=== PATIENT | female | born 1960 | race Two or more races ===

== ENCOUNTER 2022-01-18 18:39 | Inpatient (IN) ==
[2022-01-18 19:29] LABS: Basophils # (auto) 0.06 K/uL (0-0.2); Basophils % (auto) 0.4 %; Eosinophils # (auto) 0.18 K/uL (0-0.50); Eosinophils % (auto) 1.2 %; Hematocrit (blood only) 32.3 % (34.1-44.9); Hemoglobin 10.2 g/dl (12.0-16.0); Immature Granulocytes # (auto) 0.06 K/uL (0.00-0.02); Immature Granulocytes % (auto) 0.4 %; Lymphocytes # (auto) 2.24 K/uL (1.2-3.4); Lymphocytes % (auto) 14.4 %; Mean Corpuscular Hemoglobin 28.1 pg (25.0-34.0); Mean Corpuscular Hgb Conc 31.6 g/dL (32.0-36.0); Monocytes # (auto) 0.69 K/uL (0.24-0.82); Monocytes % (auto) 4.4 %; Neutrophils # (auto) 12.37 K/uL (1.4-6.5); Neutrophils % (auto) 79.2 %; Platelet Count 544 K/uL (130-400); RDW Coefficient of Variation 12.5 % (11.5-14.5); RDW Standard Deviation 40.7 fL (36.4-46.3); Red Blood Count 3.63 M/uL (3.93-5.22)
[2022-01-18 19:41] LABS: Partial Thromboplastin Ratio 0.9; Partial Thromboplastin Time 24.4 Seconds (21.0-31.0); Prothrombin Time 10.4 Seconds (9.0-12.0)
[2022-01-18 20:04] LABS: Albumin Globulin Ratio 1.4 (0.9-2); Albumin Level 4.5 gm/dl (3.4-5.0); BUN Creatinine Ratio 20.6 (10-20); Bilirubin,Total 0.2 mg/dl (0.2-1.0); Calcium 9.6 mg/dl (8.5-10.1); Creatinine Clr Calc Pharmacy 47.1 ml/min; Est GFR (African American) 53.6 ml/min; Est GFR (Non-African American) 46.3 ml/min; Globulin 3.2 gm/dl (2.5-4.0); Potassium 3.9 mmol/L (3.5-5.1); Total Protein 7.7 gm/dl (6.0-8.3)
[2022-01-18 20:51] LABS: Troponin I High Sensitivity 81.8 pg/ml (0-14)
[2022-01-18] MEDS ORDERED: ASPIRIN CHEW 324 MG PO STA (20:59)
--- NOTE | 2022-01-18 21:01 | Emergency Department Note ---
Impression & Plan Chest pain, Elevated troponin I level, NSTEMI (non-ST elevated myocardial infarction) ED Provider Note NAME: CEE GARIBAY AGE: 61 SEX: F : 1960 ARRIVES VIA: Walk-In INFORMANT: Patient, ED PROVIDER(S): Josef Jiménez DO CHIEF COMPLAINT: Chest pain HPI: The patient is a 61-year-old female who presented to the emergency dep artment directly from [facility]. The patient went to [facility] because she developed chest pain which was initially in her chest and then into her arm. She was very diaphoretic. The patient states that she does not have a cardiac history but took her 's nitroglycerin which relieved the pain. She was told that her EKG was abnormal at [facility] [employer] and was told to come to the emergency department for immediate evaluation of angina. The patient states she has no pain at this time. She denies having any lower extremity swelling. She denies having any nausea or abdominal pain. The patient denies having any cough. The patient denies having any cardiac work-up in the past. ROS: See above HPI for pertinent positives & negatives. A total of 10 systems reviewed and were otherwise negative. PAST MEDICAL HISTORY: See Below PAST SURGICAL HISTORY: See Below FAMILY HISTORY: See Below SOCIAL HISTORY: See Below HOME MEDICATIONS: See Below ALLERGIES: See Below VITALS: See Below PHYSICAL EXAMINATION: GENERAL: Patient is awake alert in no acute distress patient is resting comfortably and showing no signs of anxiety EYES: The conjunctivae are clear. The pupils are round and reactive. EARS, NOSE, MOUTH AND THROAT: The nose is without any evidence of any deformity. NECK: The neck is nontender and supple. RESPIRATORY: Normal respiratory effort is noted there is no evidence of wheezing rhonchi or rales CARDIOVASCULAR: Regular rate and rhythm noted there no murmurs rubs or gallops normal S1 normal S2. GASTROINTESTINAL: The abdomen is soft. Abdomen is nontender. MUSCULOSKELETAL/EXTREMITIES: There is no evidence of gross deformity full range of motion is noted in the hips and shoulders. SKIN: There is no obvious evidence of any rash. There are no petechiae, pallor or cyanosis noted. NEUROLOGIC: Patient is awake alert and oriented x3 MEDICAL DECISION MAKING: The patient is a 61-year-old female with multiple risk factors for coronary artery disease who presented to the emergency department for chest pain. The patient was initially seen at [facility] for chest [facility]. She was sent to the emergency department for further evaluation given her risk factors. I discussed the patient's laboratory and radiographic studies with her. She took her 's nitroglycerin with resolution of her symptoms and at this time has no pain. She was treated with aspirin in the emergency department. EKG shows no acute ischemic changes. Cardiac biomarker was elevated. For this reason I discussed her case with the on-call [facility] hospitalist. They have agreed to evaluate the patient in the emergency department for further management and disposition. The patient may require further treatment including blood thinners but at this time she has no pain so I will defer this decision to the admitting team. Triage Nursing notes reviewed. Prior medical records reviewed Vital Signs: reviewed and remarkable for no significant abnormalities Differential diagnosis: Cardiac ischemia, aortic dissection, pulmonary embolism, pneumothorax, pneumonia, pericarditis, myocarditis, esophageal rupture, GERD, cholecystitis, pancreatitis, musculoskeletal, as well as other pathologies. ER treatment provided: See below Diagnostics interpreted by me: ECG: EG was obtained in the emergency department. My interpretation is normal sinus rhythm at 75 bpm. There is no ectopy. There is no acute ST segment abnormalities noted. No previous tracing was available Cardiac Monitoring: An order was placed for continuous cardiac monitoring. The monitor shows a rate of 72 bpm with sinus rhythm. Laboratory studies: As stated above and show below. Imaging studies: See below Consultation(s): I discussed this case with Dr. Nails who [facility] Past Med/Surg History Medical History Diabetes Hypertension Neuropathy Sarcoidosis Sciatica Social History Smoking Status: Never smoker Hx Alcohol Use: No Hx Substance Use: No Preferred Language: Swedish [employer] Worker Required: No Beliefs That Will Affect Care: None Current Living Situation: Alone and Family Current Living Situation Comment: lives alone in [place]; visiting with sister for few months Other Information That Helps Us Care for You: No Feels Safe at Home: Yes Safety Concerns: Feels Safe At This Time Allergies Allergies Allergy/AdvReac Type Severity Reaction Status Date / Time unrecalled antibiotic (not Allergy Mild rash/fixed Uncoded 01/19/22 01:11 pcn, not cipro) drug eruption Home Meds Home Medications Medication Instructions Recorded Confirmed metformin 1,000 mg tablet 1,000 mg PO BID 01/18/22 01/18/22 Results & Data (ED) Vital Signs Vital Signs - 24 hr 01/18/22 18:47 01/18/22 21:17 01/18/22 23:06 Temperature 36.4 C L Temperature Source Temporal Artery Scan Pulse Rate 80 Pulse Rate [Finger] 87 81 Pulse Rhythm [Finger] Regular Pulse Strength [Finger] Normal Respiratory Rate 16 18 18 Respiratory Effort / Characteristics Non-Labored Non-Labored Respiratory Depth Normal Normal Respiratory Pattern Regular Regular Blood Pressure 149/76 H Blood Pressure [Right Arm] 174/96 H 136/69 Blood Pressure Mean 100 Blood Pressure Mean [Right Arm] 122 91 Blood Pressure Position Sitting Blood Pressure Position [Right Arm] Lying Pulse Oximetry 99 98 99 Oxygen Delivery Method Room Air Sepsis Recent Fever Within 48 Hours No Sepsis New/Unexplained Change in Mental Status N/A Sepsis Action Taken by Nursing No Action Required 01/18/22 23:37 Temperature Temperature Source Pulse Rate Pulse Rate [Finger] Pulse Rhythm [Finger] Pulse Strength [Finger] Respiratory Rate Respiratory Effort / Characteristics Respiratory Depth Respiratory Pattern Blood Pressure Blood Pressure [Right Arm] Blood Pressure Mean Blood Pressure Mean [Right Arm] Blood Pressure Position Blood Pressure Position [Right Arm] Pulse Oximetry Oxygen Delivery Method Room Air Sepsis Recent Fever Within 48 Hours Sepsis New/Unexplained Change in Mental Status Sepsis Action Taken by Care Home Medications Current Medication List: was personally reviewed by me Laboratory Data Attestation: I reviewed the patient's lab results. Result diagrams: 01/19/22 08:38 01/19/22 08:38 Lab Results 01/18/22 01/18/22 01/18/22 Range/Units 19:07 19:07 19:07 WBC 15.60 H (4.8-10.8) K/ul RBC 3.63 L (3.93-5.22) M/uL Hgb 10.2 L (12.0-16.0) g/dl Hct 32.3 L (34.1-44.9) % MCV 89.0 (80.0-100.0) fL MCH 28.1 (25.0-34.0) pg MCHC 31.6 L (32.0-36.0) g/dL RDW Std Deviation 40.7 (36.4-46.3) fL RDW Coeff of Hum[place] 12.5 (11.5-14.5) % Plt Count 544 H (130-400) K/uL MPV 9.0 L (9.4-12.3) fL Immature Gran % (Auto) 0.4 % Neut % (Auto) 79.2 % Lymph % (Auto) 14.4 % [place] % (Auto) 4.4 % Eos % (Auto) 1.2 % Baso % (Auto) 0.4 % Reticulocyte % (Auto) (0.5-2.0) % Neut # (Auto) 12.37 H (1.4-6.5) K/uL Lymph # (Auto) 2.24 (1.2-3.4) K/uL [place] # (Auto) 0.69 (0.24-0.82) K/uL Eos # (Auto) 0.18 (0-0.50) K/uL Baso # (Auto) 0.06 (0-0.2) K/uL Reticulocyte # (0.02-0.10) 10^6/uL Immature Gran # (Auto) 0.06 H (0.00-0.02) K/uL PT 10.4 (9.0-12.0) Seconds INR 1.0 (0.9-1.1) APTT 24.4 (21.0-31.0) Seconds PTT Ratio 0.9 Sodium 135 L (136-145) mmol/L Potassium 3.9 (3.5-5.1) mmol/L Chloride 100 (98-107) mmol/L Carbon Dioxide 25 (21-32) mmol/L Anion Gap 10 (3-11) BUN 26 H (6-23) mg/dl Creatinine 1.26 H (0.6-1.2) mg/dl Est Cr Clr Drug Dosing 47.1 ml/min Est GFR ( Amer) 53.6 ml/min Est GFR (Non-Af Amer) 46.3 ml/min BUN/Creatinine Ratio 20.6 H (10-20) Glucose 162 H (70-99(Fasting)) mg/dl Estimat Average Glucose mg/dl Hemoglobin A1c (4.5-5.6) % Calcium 9.6 (8.5-10.1) mg/dl Magnesium (1.7-2.4) mg/dl Iron (35-150) mcg/dl Transferrin (200-360) mg/dl Ferritin (8-388) ng/ml Total Bilirubin 0.2 (0.2-1.0) mg/dl AST 14 (13-39) U/L ALT 14 (7-52) U/L Alkaline Phosphatase 57 (34-104) U/L Troponin I High Sens 81.8 H* (0-14) pg/ml Total Protein 7.7 (6.0-8.3) gm/dl Albumin 4.5 (3.4-5.0) gm/dl Globulin 3.2 (2.5-4.0) gm/dl Albumin/Globulin Ratio 1.4 (0.9-2) Vitamin B12 (180-914) pg/ml Folate (>5.38) ng/ml TSH (0.300-4.500) uIu/ml Free T4 (0.61-1.60) ng/dl Urine Color Urine Appearance (Clear) Urine pH (4.5-7.5) Ur Specific [place] (1.000-1.030) Urine Protein (Negative) Urine Glucose (UA) (Negative) Urine Ketones (Negative) Urine Blood (Negative) Urine Nitrite (Negative) Urine Bilirubin (Negative) Urine Urobilinogen (Negative) Ur Leukocyte Esterase (Negative) SARS-CoV-2, RNA, NAAT (NEGATIVE) Blood Type Antibody Screen 01/18/22 01/18/22 01/18/22 Range/Units 19:07 19:07 19:07 WBC (4.8-10.8) K/ul RBC (3.93-5.22) M/uL Hgb (12.0-16.0) g/dl Hct (34.1-44.9) % MCV (80.0-100.0) fL MCH (25.0-34.0) pg MCHC (32.0-36.0) g/dL RDW Std Deviation (36.4-46.3) fL RDW Coeff of Humble (11.5-14.5) % Plt Count (130-400) K/uL MPV (9.4-12.3) fL Immature Gran % (Auto) % Neut % (Auto) % Lymph % (Auto) % [place] % (Auto) % Eos % (Auto) % Baso % (Auto) % Reticulocyte % (Auto) 1.4 (0.5-2.0) % Neut # (Auto) (1.4-6.5) K/uL Lymph # (Auto) (1.2-3.4) K/uL [place] # (Auto) (0.24-0.82) K/uL Eos # (Auto) (0-0.50) K/uL Baso # (Auto) (0-0.2) K/uL Reticulocyte # 0.05 (0.02-0.10) 10^6/uL Immature Gran # (Auto) (0.00-0.02) K/uL PT (9.0-12.0) Seconds INR (0.9-1.1) APTT (21.0-31.0) Seconds PTT Ratio Sodium (136-145) mmol/L Potassium (3.5-5.1) mmol/L Chloride (98-107) mmol/L Carbon Dioxide (21-32) mmol/L Anion Gap (3-11) BUN (6-23) mg/dl Creatinine (0.6-1.2) mg/dl Est Cr Clr Drug Dosing ml/min Est GFR ( Amer) ml/min Est GFR (Non-Af Amer) ml/min BUN/Creatinine Ratio (10-20) Glucose (70-99(Fasting)) mg/dl Estimat Average Glucose 157 mg/dl Hemoglobin A1c 7.1 H (4.5-5.6) % Calcium (8.5-10.1) mg/dl Magnesium (1.7-2.4) mg/dl Iron (35-150) mcg/dl Transferrin (200-360) mg/dl Ferritin (8-388) ng/ml Total Bilirubin (0.2-1.0) mg/dl AST (13-39) U/L ALT (7-52) U/L Alkaline Phosphatase (34-104) U/L Troponin I High Sens (0-14) pg/ml Total Protein (6.0-8.3) gm/dl Albumin (3.4-5.0) gm/dl Globulin (2.5-4.0) gm/dl Albumin/Globulin Ratio (0.9-2) Vitamin B12 (180-914) pg/ml Folate (>5.38) ng/ml TSH 4.701 H (0.300-4.500) uIu/ml Free T4 0.92 (0.61-1.60) ng/dl Urine Color Urine Appearance (Clear) Urine pH (4.5-7.5) Ur Specific [place] (1.000-1.030) Urine Protein (Negative) Urine Glucose (UA) (Negative) Urine Ketones (Negative) Urine Blood (Negative) Urine Nitrite (Negative) Urine Bilirubin (Negative) Urine Urobilinogen (Negative) Ur Leukocyte Esterase (Negative) SARS-CoV-2, RNA, NAAT (NEGATIVE) Blood Type Antibody Screen 01/18/22 01/18/22 01/18/22 Range/Units 19:07 21:14 22:07 WBC (4.8-10.8) K/ul RBC (3.93-5.22) M/uL Hgb (12.0-16.0) g/dl Hct (34.1-44.9) % MCV (80.0-100.0) fL MCH (25.0-34.0) pg MCHC (32.0-36.0) g/dL RDW Std Deviation (36.4-46.3) fL RDW Coeff of Humble (11.5-14.5) % Plt Count (130-400) K/uL MPV (9.4-12.3) fL Immature Gran % (Auto) % Neut % (Auto) % Lymph % (Auto) % [place] % (Auto) % Eos % (Auto) % Baso % (Auto) % Reticulocyte % (Auto) (0.5-2.0) % Neut # (Auto) (1.4-6.5) K/uL Lymph # (Auto) (1.2-3.4) K/uL [place] # (Auto) (0.24-0.82) K/uL Eos # (Auto) (0-0.50) K/uL Baso # (Auto) (0-0.2) K/uL Reticulocyte # (0.02-0.10) 10^6/uL Immature Gran # (Auto) (0.00-0.02) K/uL PT (9.0-12.0) Seconds INR (0.9-1.1) APTT (21.0-31.0) Seconds PTT Ratio Sodium (136-145) mmol/L Potassium (3.5-5.1) mmol/L Chloride (98-107) mmol/L Carbon Dioxide (21-32) mmol/L Anion Gap (3-11) BUN (6-23) mg/dl Creatinine (0.6-1.2) mg/dl Est Cr Clr Drug Dosing ml/min Est GFR ( Amer) ml/min Est GFR (Non-Af Amer) ml/min BUN/Creatinine Ratio (10-20) Glucose (70-99(Fasting)) mg/dl Estimat Average Glucose mg/dl Hemoglobin A1c (4.5-5.6) % Calcium (8.5-10.1) mg/dl Magnesium (1.7-2.4) mg/dl Iron (35-150) mcg/dl Transferrin (200-360) mg/dl Ferritin (8-388) ng/ml Total Bilirubin (0.2-1.0) mg/dl AST (13-39) U/L ALT (7-52) U/L Alkaline Phosphatase (34-104) U/L Troponin I High Sens (0-14) pg/ml Total Protein (6.0-8.3) gm/dl Albumin (3.4-5.0) gm/dl Globulin (2.5-4.0) gm/dl Albumin/Globulin Ratio (0.9-2) Vitamin B12 52 L (180-914) pg/ml Folate > 22.30 (>5.38) ng/ml TSH (0.300-4.500) uIu/ml Free T4 (0.61-1.60) ng/dl Urine Color Urine Appearance (Clear) Urine pH (4.5-7.5) Ur Specific [place] (1.000-1.030) Urine Protein (Negative) Urine Glucose (UA) (Negative) Urine Ketones (Negative) Urine Blood (Negative) Urine Nitrite (Negative) Urine Bilirubin (Negative) Urine Urobilinogen (Negative) Ur Leukocyte Esterase (Negative) SARS-CoV-2, RNA, NAAT NEGATIVE (NEGATIVE) Blood Type AB Positive Antibody Screen NEGATIVE 01/18/22 01/18/22 Range/Units 22:07 22:56 WBC (4.8-10.8) K/ul RBC (3.93-5.22) M/uL Hgb (12.0-16.0) g/dl Hct (34.1-44.9) % MCV (80.0-100.0) fL MCH (25.0-34.0) pg MCHC (32.0-36.0) g/dL RDW Std Deviation (36.4-46.3) fL RDW Coeff of Hum[place] (11.5-14.5) % Plt Count (130-400) K/uL MPV (9.4-12.3) fL Immature Gran % (Auto) % Neut % (Auto) % Lymph % (Auto) % [place] % (Auto) % Eos % (Auto) % Baso % (Auto) % Reticulocyte % (Auto) (0.5-2.0) % Neut # (Auto) (1.4-6.5) K/uL Lymph # (Auto) (1.2-3.4) K/uL [place] # (Auto) (0.24-0.82) K/uL Eos # (Auto) (0-0.50) K/uL Baso # (Auto) (0-0.2) K/uL Reticulocyte # (0.02-0.10) 10^6/uL Immature Gran # (Auto) (0.00-0.02) K/uL PT (9.0-12.0) Seconds INR (0.9-1.1) APTT (21.0-31.0) Seconds PTT Ratio Sodium (136-145) mmol/L Potassium (3.5-5.1) mmol/L Chloride (98-107) mmol/L Carbon Dioxide (21-32) mmol/L Anion Gap (3-11) BUN (6-23) mg/dl Creatinine (0.6-1.2) mg/dl Est Cr Clr Drug Dosing ml/min Est GFR ( Amer) ml/min Est GFR (Non-Af Amer) ml/min BUN/Creatinine Ratio (10-20) Glucose (70-99(Fasting)) mg/dl Estimat Average Glucose mg/dl Hemoglobin A1c (4.5-5.6) % Calcium (8.5-10.1) mg/dl Magnesium 1.8 (1.7-2.4) mg/dl Iron 25 L (35-150) mcg/dl Transferrin 399 H (200-360) mg/dl Ferritin 19.9 (8-388) ng/ml Total Bilirubin (0.2-1.0) mg/dl AST (13-39) U/L ALT (7-52) U/L Alkaline Phosphatase (34-104) U/L Troponin I High Sens 406.6 H* D (0-14) pg/ml Total Protein (6.0-8.3) gm/dl Albumin (3.4-5.0) gm/dl Globulin (2.5-4.0) gm/dl Albumin/Globulin Ratio (0.9-2) Vitamin B12 (180-914) pg/ml Folate (>5.38) ng/ml TSH (0.300-4.500) uIu/ml Free T4 (0.61-1.60) ng/dl Urine Color Yellow Urine Appearance Clear (Clear) Urine pH 5.5 (4.5-7.5) Ur Specific [place] 1.005 (1.000-1.030) Urine Protein Negative (Negative) Urine Glucose (UA) Negative (Negative) Urine Ketones Negative (Negative) Urine Blood Negative (Negative) Urine Nitrite Negative (Negative) Urine Bilirubin Negative (Negative) Urine Urobilinogen Negative (Negative) Ur Leukocyte Esterase Negative (Negative) SARS-CoV-2, RNA, NAAT (NEGATIVE) Blood Type Antibody Screen Administered Medications Aspirin (Aspirin 81 Mg Ectab) 81 mg PO QAM [facility] Stop: 02/18/22 08:59 Last Admin: 01/19/22 08:29 Dose: 81 mg Documented By: SAM Lactated Ringer's (Lr) 1,000 mls @ 50 mls/hr IV .Q20H ONE Stop: 01/19/22 17:37 Last Admin: 01/18/22 22:02 Dose: 50 mls/hr Documented By: NEAL Heparin Sodium/Dextrose (Heparin Sodium/Dextrose) 25,000 units in 500 mls @ 24 mls/hr IV .[id number] [facility]; Protocol Stop: 02/18/22 00:29 Last Titration: 01/19/22 09:16 Dose: 1,200 units/hr, 24 mls/hr Documented By: SAM Co-signed By: CARMEN Admin: 01/19/22 02:53 Dose: 1,150 units/hr, 23 mls/hr Documented By: ALFIE Co-signed By: CHARLES Insulin Aspart (Insulin Aspart Per Unit) 0 units SC Q6 [facility] Stop: 02/18/22 05:59 Last Admin: 01/19/22 06:35 Dose: Not Given Documented By: ALFIE Metoprolol Tartrate (Metoprolol Tartrate 25 Mg Tab) 25 mg PO BID [facility] Stop: 02/18/22 08:59 Last Admin: 01/19/22 08:29 Dose: 25 mg Documented By: SAM Discontinued Medications Aspirin (Aspirin Chew 324 Mg) 324 mg PO NOW STA Stop: 01/18/22 21:00 Last Admin: 01/18/22 21:17 Dose: 324 mg Documented By: NEAL Heparin Sodium/Dextrose (Heparin Iv Adult Wt-Based Standard *No* Bolus Protocol) 1 each IV Q15M [facility]; Protocol Stop: 01/19/22 04:00 Last Admin: 01/19/22 03:12 Dose: Not Given Documented By: ALFIE Metoprolol Tartrate (Metoprolol Tartrate 25 Mg Tab) 25 mg PO NOW STA Stop: 01/18/22 21:38 Last Admin: 01/18/22 22:02 Dose: 25 mg Documented By: NEAL Miscellaneous Information (Patient's Allergy Info Needs Entered) 1 each N/A Q30M [facility] Stop: 01/19/22 02:00 Last Admin: 01/18/22 21:57 Dose: 1 each Documented By: NEAL Imaging Data Attestation: I personally reviewed and interpreted this imaging study as follows: My Impression: 1 view chest x-ray was obtained in the emergency department. My interpretation is no definite infiltrate, no free air, no acute disease. Radiologist's Impression: Chest X-Ray 01/18/22 20:59 XR chest 1V portable CLINICAL HISTORY: CP TECHNIQUE: Single frontal radiograph of the chest was obtained. Comparison: None available at the time of this dictation. FINDINGS: No lines and tubes are seen. The cardiomediastinal silhouette is normal. The lungs are clear. No evidence of pleural effusion or pneumothorax. IMPRESSION: No acute chest disease. ACT 112: Negative or not required by law. Electronically signed by: Sanchez Francisco M.D. 01/19/2022 9:04 AM Discharge Plan Visit Data Chief Complaint: Cardiac Assessment Stated Complaint: CHEST PAIN, BACK/ARM PAIN, SL NITRO HELPED SOME ED Provider: Josef Jiménez Discharge Problem: Chest pain, Elevated troponin I level, NSTEMI (non-ST elevated myocardial infarction) Patient Disposition: Admitted As Inpatient Discharge Instructions Interventions: ED Discharge Assessment Last Done: 01/19/22 02:27
[2022-01-18] MEDS ORDERED: METOPROLOL TARTRATE 25 MG TAB PO STA ×2 (21:33→21:37)
[2022-01-18] MEDS ORDERED: LACTATED RINGER'S 1,000 ML IV ONE (21:38)
[2022-01-18] MEDS ORDERED: Patient's ALLERGY Info needs ENTERED SCH (21:45)
[2022-01-18 22:16] LABS: Reticulocyte % 1.4 % (0.5-2.0); Reticulocytes # 0.05 10^6/uL (0.02-0.10)
[2022-01-18 22:21] LABS: Thyroid Stimulating Hormone 4.701 uIu/ml (0.300-4.500)
[2022-01-18 22:48] LABS: Magnesium 1.8 mg/dl (1.7-2.4)
[2022-01-18 22:50] LABS: Folate (Folic Acid) > 22.30 ng/ml (>5.38)
[2022-01-18 22:51] LABS: Vitamin B12 52 pg/ml (180-914)
[2022-01-18 22:53] LABS: Troponin I High Sensitivity 406.6 pg/ml (0-14)
[2022-01-18 23:03] LABS: T4 Free Thyroxine 0.92 ng/dl (0.61-1.60)
[2022-01-18 23:07] LABS: Appearance Urine Clear (Clear); Bilirubin Urine Negative (Negative); Blood Urine Negative (Negative); Color Urine Yellow; Glucose Urine UA Negative (Negative); Ketones Urine Negative (Negative); Leukocyte Esterase Urine Negative (Negative); Nitrite Urine Negative (Negative); Protein Urine Negative (Negative); Specific Gravity Urine 1.005 (1.000-1.030); Urobilinogen Urine Negative (Negative); pH Urine 5.5 (4.5-7.5)
[2022-01-18 23:30] LABS: Ferritin 19.9 ng/ml (8-388)
[2022-01-19] MEDS ORDERED: Heparin IV Adult Wt-Based Standard *NO* Bolus Protocol IV SCH
--- NOTE | 2022-01-19 00:01 | History & Physical Report ---
Date of Service January 19, 2022 Assessment & Plan (1) NSTEMI (non-ST elevated myocardial infarction): Plan: HTN, elevated hx "tachycardia" on beta-vasiliy Rx hyperlipidemia on fibrate Rx DM2 on oral medications, unknown baseline control hx sarcoidosis/seronegative rheumatoid arthritis on chronic steroid/allopurinol Rx as per patient ARF, unknown duration (patient unaware of prior lab abnormalities) Anemia, unknown duration (history of anemia secondary to menorrhagia during her younger years requiring Venofer Rx as per patient) PCU Aspirin, beta-vasiliy, nitro as needed Initiate IV heparin Trend troponin TTE, Cardiology consult Re: NSTEMI N.p.o. until patient seen by cardiology in anticipation of ischemic work-up Monitor creatinine response to IVF Check lipid profile, hemoglobin A1c Anemia work-up (Patient refusing transfusion as needed for now in the event of progression of anemia/blood loss.) Basal bolus insulin adjusted for n.p.o. status, ISS BG goal 1 10-1 40 Request morning provider to reconcile patient's home medications when patient sister brings them to hospital tomorrow. (Important to continue current daily home steroid Rx preparation in particular.) DVT prophylaxis with IV heparin Full code Patient sister requesting updates from providers. Indigo Varela, contact #[phone]. Text document was generated using [employer] voice recognition software. It may contain grammatical or spelling errors. Kindly contact undersigned for clarification of any documentation item in question. History of Present Illness Chief Complaint: Chest pain Primary Care Provider: NO PCP History obtained from patient, family, and records. Medical history significant for HTN, "tachycardia" on beta-vasiliy Rx, hyperlipidemia, DM2 on oral medications, sarcoidosis/seronegative rheumatoid arthritis on chronic steroid/allopurinol Rx as per patient, mood disorder. Patient is a resident of [place] who has been vacationing last couple months in [place] at her sister's home. Patient experience achy left-sided chest pain going to her arm with shortness of breath and diaphoresis today after shopping at a local [employer]. No cough, no fever, no chills. Usual personal stressors. Chest pain relieved by nitroglycerin patient had in her purse. 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 Patient denies abdominal pain, black, bloody stools. One-time episode of gross hematuria a few months ago. Patient went to nearby urgent care center but was directed to the ER for evaluation. Aspirin administered upon arrival at the ER. Medical History as above Surgical History : Left knee surgery Home Medications (patient uncertain about doses) : Indapamide, Folic acid, Sertraline, Fenofibrate, Prednisolone, Nebivolol, Allopurinol Family History : Heart disease Personal/Social history : Non-smoker, no EtOH intake, prior work as a schoolteacher, born in [facility] but currently residing in [place] Allergies Allergy/AdvReac Type Severity Reaction Status Date / Time unrecalled antibiotic (not Allergy Mild rash/fixed Uncoded 01/19/22 01:11 pcn, not cipro) drug eruption Home Medications Medication Instructions Recorded Confirmed Type metformin 1,000 mg tablet 1,000 mg PO BID 01/18/22 01/18/22 History Past Med/Surg History Medical History Diabetes Hypertension Neuropathy Sarcoidosis Sciatica Social History Smoking Status: Never smoker Hx Alcohol Use: No Hx Substance Use: No Preferred Language: Latvian [employer]imator [employer]ing Required: No Beliefs That Will Affect Care: None Current Living Situation: Alone and Family Current Living Situation Comment: lives alone in [place]; visiting with sister for few months Other Information That Helps Us Care for You: No Feels Safe at Home: Yes Safety Concerns: Feels Safe At This Time Review of Systems Review of Systems: As per HPI, all other systems reviewed and negative Physical Exam Physical Exam: GENERAL: Comfortable, pleasant, slightly anxious, no respiratory distress SKIN: Pallor,, warm HEENT: Pale palpebral conjunctivae, no ptosis, dry buccal mucosa NECK : Supple, no tenderness CHEST : CTA, no tenderness HEART : RRR, no obvious murmurs ABDOMEN: Some distention, nontender EXTREMITIES : No LE swelling/tenderness, no other conspicuous deformities noted NEUROLOGIC : Coherent, no facial asymmetry, no other gross focality Results & Data Results & Data ([facility]) Vital Signs (Past 12 Hours) Vital Signs Temp Pulse Pulse Resp BP BP Pulse Ox 01/18/22 23:37 01/18/22 23:06 81 18 136/69 99 01/18/22 21:17 87 18 174/96 H 98 01/18/22 18:47 36.4 C L 80 16 149/76 H 99 O2 Del Method 01/18/22 23:37 Room Air 01/18/22 23:06 01/18/22 21:17 01/18/22 18:47 Room Air Laboratory Results Laboratory Results WBC 15.60 K/ul (4.8-10.8) H 01/18/22 19:07 RBC 3.63 M/uL (3.93-5.22) L 01/18/22 19:07 Hgb 10.2 g/dl (12.0-16.0) L 01/18/22 19:07 Hct 32.3 % (34.1-44.9) L 01/18/22 19:07 MCV 89.0 fL (80.0-100.0) 01/18/22 19:07 MCH 28.1 pg (25.0-34.0) 01/18/22 19:07 MCHC 31.6 g/dL (32.0-36.0) L 01/18/22 19:07 RDW Std Deviation 40.7 fL (36.4-46.3) 01/18/22 19:07 RDW Coeff of [place] 12.5 % (11.5-14.5) 01/18/22 19:07 Plt Count 544 K/uL (130-400) H 01/18/22 19:07 MPV 9.0 fL (9.4-12.3) L 01/18/22 19:07 Immature Gran % (Auto) 0.4 % 01/18/22 19:07 Neut % (Auto) 79.2 % 01/18/22 19:07 Lymph % (Auto) 14.4 % 01/18/22 19:07 [place] % (Auto) 4.4 % 01/18/22 19:07 Eos % (Auto) 1.2 % 01/18/22 19:07 Baso % (Auto) 0.4 % 01/18/22 19:07 Reticulocyte % (Auto) 1.4 % (0.5-2.0) 01/18/22 19:07 Neut # (Auto) 12.37 K/uL (1.4-6.5) H 01/18/22 19:07 Lymph # (Auto) 2.24 K/uL (1.2-3.4) 01/18/22 19:07 [place] # (Auto) 0.69 K/uL (0.24-0.82) 01/18/22 19:07 Eos # (Auto) 0.18 K/uL (0-0.50) 01/18/22 19:07 Baso # (Auto) 0.06 K/uL (0-0.2) 01/18/22 19:07 Reticulocyte # 0.05 10^6/uL (0.02-0.10) 01/18/22 19:07 Immature Gran # (Auto) 0.06 K/uL (0.00-0.02) H 01/18/22 19:07 PT 10.4 Seconds (9.0-12.0) 01/18/22 19:07 INR 1.0 (0.9-1.1) 01/18/22 19:07 APTT 24.4 Seconds (21.0-31.0) 01/18/22 19:07 PTT Ratio 0.9 01/18/22 19:07 Sodium 135 mmol/L (136-145) L 01/18/22 19:07 Potassium 3.9 mmol/L (3.5-5.1) 01/18/22 19:07 Chloride 100 mmol/L (98-107) 01/18/22 19:07 Carbon Dioxide 25 mmol/L (21-32) 01/18/22 19:07 Anion Gap 10 (3-11) 01/18/22 19:07 BUN 26 mg/dl (6-23) H 01/18/22 19:07 Creatinine 1.26 mg/dl (0.6-1.2) H 01/18/22 19:07 Est Cr Clr Drug Dosing 47.1 ml/min 01/18/22 19:07 Est GFR ( Amer) 53.6 ml/min 01/18/22 19:07 Est GFR (Non-Af Amer) 46.3 ml/min 01/18/22 19:07 BUN/Creatinine Ratio 20.6 (10-20) H 01/18/22 19:07 Glucose 162 mg/dl (70-99(Fasting)) H 01/18/22 19:07 Calcium 9.6 mg/dl (8.5-10.1) 01/18/22 19:07 Magnesium 1.8 mg/dl (1.7-2.4) 01/18/22 22:07 Iron 25 mcg/dl (35-150) L 01/18/22 22:07 Transferrin 399 mg/dl (200-360) H 01/18/22 22:07 Ferritin 19.9 ng/ml (8-388) 01/18/22 22:07 Total Bilirubin 0.2 mg/dl (0.2-1.0) 01/18/22 19:07 AST 14 U/L (13-39) 01/18/22 19:07 ALT 14 U/L (7-52) 01/18/22 19:07 Alkaline Phosphatase 57 U/L (34-104) 01/18/22 19:07 Troponin I High Sens 406.6 pg/ml (0-14) H* D 01/18/22 22:07 Total Protein 7.7 gm/dl (6.0-8.3) 01/18/22 19:07 Albumin 4.5 gm/dl (3.4-5.0) 01/18/22 19:07 Globulin 3.2 gm/dl (2.5-4.0) 01/18/22 19:07 Albumin/Globulin Ratio 1.4 (0.9-2) 01/18/22 19:07 Vitamin B12 52 pg/ml (180-914) L 01/18/22 19:07 Folate > 22.30 ng/ml (>5.38) 01/18/22 19:07 TSH 4.701 uIu/ml (0.300-4.500) H 01/18/22 19:07 Free T4 0.92 ng/dl (0.61-1.60) 01/18/22 19:07 Urine Color Yellow 01/18/22 22:56 Urine Appearance Clear (Clear) 01/18/22 22:56 Urine pH 5.5 (4.5-7.5) 01/18/22 22:56 Ur Specific [place] 1.005 (1.000-1.030) 01/18/22 22:56 Urine Protein Negative (Negative) 01/18/22 22:56 Urine Glucose (UA) Negative (Negative) 01/18/22 22:56 Urine Ketones Negative (Negative) 08/31/22 22:56 Urine Blood Negative (Negative) 01/18/22 22:56 Urine Nitrite Negative (Negative) 01/18/22 22:56 Urine Bilirubin Negative (Negative) 01/18/22 22:56 Urine Urobilinogen Negative (Negative) 01/18/22 22:56 Ur Leukocyte Esterase Negative (Negative) 01/18/22 22:56 SARS-CoV-2, RNA, NAAT NEGATIVE (NEGATIVE) 01/18/22 21:14 Blood Type AB Positive 01/18/22 22:07 Antibody Screen NEGATIVE 01/18/22 22:07 Diagnostic Findings Chest x-ray as per my interpretation atelectasis EKG as per my interpretation : rate 75, NSR, normal axis, T wave inversion septal leads,
[2022-01-19] MEDS ORDERED: CARBOHYDRATES FOR HYPOGLYCEMIA PO PRN (02:46)
[2022-01-19] MEDS ORDERED: DEXTROSE 50% 50 ML SYRINGE IV PRN (02:46)
[2022-01-19] MEDS ORDERED: ACETAMINOPHEN 325 MG TAB PO PRN (02:46)
[2022-01-19] MEDS ORDERED: GLUCOSE 40% GEL 15 GM TUBE PO PRN (02:46)
[2022-01-19] MEDS ORDERED: HYDROmorphone INJ 0.5 MG/0.5 ML SYR IV PRN (02:46)
[2022-01-19] MEDS ORDERED: GLUCOSE 10 TAB/TUBE PO PRN (02:46)
[2022-01-19] MEDS ORDERED: PROMETHAZINE HCL 12.5 MG in SODIUM CHLORIDE 0.9% 50 ML IV PRN (02:46)
[2022-01-19] MEDS ORDERED: GLUCAGON FOR INJ 1 MG VIAL SQ PRN (02:46)
[2022-01-19] MEDS ORDERED: NITROGLYCERIN SL 0.4 MG/TAB TAB SL PRN (02:46)
[2022-01-19] MEDS ORDERED: LORazepam 0.5 MG TAB PO PRN (02:46)
[2022-01-19] MEDS ORDERED: traMADol HCL 50 MG TABLET PO PRN (02:46)
[2022-01-19] MEDS: HEPARIN SODIUM/DEXTROSE 25,000 UNITS/500 ML BAG IV SCH ×2 (02:53→22:39)
[2022-01-19] MEDS: INSULIN ASPART PER UNIT SC SCH ×4 (06:35→20:02)
[2022-01-19 07:19] LABS: Estimated Average Glucose 157 mg/dl; Hemoglobin A1C 7.1 % (4.5-5.6)
[2022-01-19] MEDS: METOPROLOL TARTRATE 25 MG TAB PO SCH ×2 (08:29→19:55)
[2022-01-19] MEDS: ASPIRIN 81 MG ECTAB PO SCH (08:29)
[2022-01-19 08:52] LABS: Basophils # (auto) 0.06 K/uL (0-0.2); Basophils % (auto) 0.6 %; Eosinophils # (auto) 0.21 K/uL (0-0.50); Hematocrit (blood only) 31.9 % (34.1-44.9); Hemoglobin 10.2 g/dl (12.0-16.0); Immature Granulocytes # (auto) 0.03 K/uL (0.00-0.02); Immature Granulocytes % (auto) 0.3 %; Mean Corpuscular Hemoglobin 27.8 pg (25.0-34.0); Mean Corpuscular Volume 86.9 fL (80.0-100.0); Mean Platelet Volume 8.8 fL (9.4-12.3); Monocytes # (auto) 0.49 K/uL (0.24-0.82); Monocytes % (auto) 4.6 %; Neutrophils # (auto) 6.81 K/uL (1.4-6.5); Neutrophils % (auto) 63.5 %; Platelet Count 505 K/uL (130-400); RDW Coefficient of Variation 12.7 % (11.5-14.5); RDW Standard Deviation 40.2 fL (36.4-46.3); Red Blood Count 3.67 M/uL (3.93-5.22)
[2022-01-19 09:03] LABS: Partial Thromboplastin Ratio 1.6; Partial Thromboplastin Time 43.5 Seconds (21.0-31.0)
--- NOTE | 2022-01-19 09:05 | XRay Report ---
XR chest 1V portable CLINICAL HISTORY: CP TECHNIQUE: Single frontal radiograph of the chest was obtained. Comparison: None available at the time of this dictation. FINDINGS: No lines and tubes are seen. The cardiomediastinal silhouette is normal. The lungs are clear. No evid ence of pleural effusion or pneumothorax. IMPRESSION: No acute chest disease. ACT 112: Negative or not required by law. Electronically signed by: Sanchez Francisco M.D. 01/19/2022 9:04 AM
[2022-01-19 09:16] LABS: BUN Creatinine Ratio 18.5 (10-20); Calcium 9.9 mg/dl (8.5-10.1); Chol HDL Ratio 5.6 (0-5); Creatinine Clr Calc Pharmacy 54.5 ml/min; Est GFR (African American) 64.6 ml/min; Est GFR (Non-African American) 55.8 ml/min; Potassium 4.3 mmol/L (3.5-5.1)
[2022-01-19 09:21] LABS: Troponin I High Sensitivity 780.5 pg/ml (0-14)
--- NOTE | 2022-01-19 09:23 | Cardiology Consultation ---
Date of Consultation January 19, 2022 Assessment & Plan (1) Unstable angina: (2) Chest pain: (3) Elevated troponin I level: (4) NSTEMI (non-ST elevated myocardial infarction): Plan 61-year-old female with multiple cardiac risk factors admitted with resting chest pain, unstable angina presentation, NSTEMI. Agree with IV heparin, ASA, beta-vasiliy, sublingual nitroglycerin as needed. Add high intensity statin therapy. Recommend diagnostic cardiac catheterization with risks and benefits explained; patient wishing to discuss further with her [id number] who is a neurosurgeon after initially requesting consideration for delaying the procedure until she returns home ([facility]) in approximately one month. Sister updated upon presentation. Supervising Physician Co-Signing Physician Notes Patient seen and examined with Massimo Allen PA-C. Agree with findings and assessment as above. Patient is agreeable for cardiac catheterization in the a.m. N.p.o. after midnight. History of Present Illness Reason for Consultation: NSTEMI Requesting Physician: Eduin Attending Physician: Wilfrid History of Present Illness Ms. Prudencio Varela is a 61 year old female patient from [facility] who has been visiting her sister from [facility] and since October. Yesterday they ate lunch outside (fish, avocado, salsa, rice) then went to [facility] [place]. After shopping at [facility] [place], while sitting in the car, she began to feel an uneasiness feeling in the chest, left sided sharp chest pain that traveled to the left side of her back and down her left arm. She notes feeling drained and diaphoretic. She felt like she was going to pass out. No shortness of breath. She notes that her late was a physician and had her carry Angised if needed. She notes taking one Angised with improvement in about 2-3 minutes. Patient then presented to [email or web address] where an ECG was obtained and the patient was referred to the ER. In the Triage area the patient had what she describes as a brief moment of chest p ain that resolved spontaneously. She has been chest pain free since initial presentation. EKG on presentation to the [facility] ER revealed normal sinus rhythm at 75 bpm with possible left atrial enlargement. EKG this morning, obtained after evaluating the patient, revealed normal sinus rhythm at 69 bpm with new T wave changes anteriorly. High-sensitivity troponin was 81.8 then 406.6 pg/ml. Radiological interpretation of chest x-ray is not yet available, appearing to be without acute cardiopulmonary disease per my interpretation. Past Medical and Surgical History: Hypertension Dyslipidemia Type 2 diabetes mellitus Tachycardia, unspecified Sarcoidosis Seronegative arthritis CKD Anemia Positional vertigo Tinnitus Irritable bowel syndrome Bilateral arthroscopic knee surgeries Family History: Mother is alive with hypertension and diabetes. Father with emphysema and had? CHF. Paternal grandmother had an enlarged heart and? CAD. Patient has 1 younger sister and 2 younger brothers without cardiac issues. One of the younger brothers has a history of kidney cancer status post nephrectomy Social History: Non-smoker. No alcohol. No illegal drug use. Born in [place], currently residing in [place], visiting her sister presently in [place], [place]. last year with COVID; he was a Carrier Loader. No children . [id number] is a Neurosurgeon. Review of Systems: Constitutional: No change in weight. No fevers, sweats, or chills. HEENT: No amaurosis fugax. Pulmonary: No history of COPD or asthma. Cardiac: No prior cardiac history. GI/Abd: IBS. No melena or hematochezia Denies liver problems. CKD Vascular: Denies history of claudication, AAA, or carotid artery disease. Hematologic: No coagulation disorder. Musculoskeletal: Seronegative arthritis Neurologic: No history of TIA, CVA, or seizure Female : Single episode of gross hematuria 3 to 4 weeks ago Endocrine: ype 2 diabetes mellitus. No thyroid trouble. Complete Review of Systems is as stated above or negative. Allergies Allergy/AdvReac Type Severity Reaction Status Date / Time unrecalled antibiotic (not Allergy Mild rash/fixed Uncoded 01/19/22 01:11 pcn, not cipro) drug eruption Home Medications Medication Instructions Recorded Confirmed Type metformin 1,000 mg tablet 1,000 mg PO BID 01/18/22 01/18/22 History allopurinol 300 mg tablet 150 mg PO HS 01/19/22 01/19/22 History fenofibrate micronized 200 mg 200 mg PO HS 01/19/22 01/19/22 History capsule folic acid 5 mg capsule 5 mg PO BID 01/19/22 01/19/22 History gabapentin 300 mg tablet 300 mg PO HS 01/19/22 01/19/22 History indapamide 1.25 mg tablet 3 mg PO QAM 01/19/22 01/19/22 History nebivolol 2.5 mg tablet 2.5 mg PO DAILY 01/19/22 01/19/22 History nebivolol 5 mg tablet 5 mg PO HS 01/19/22 01/19/22 History nitroglycerin 0.4 mg sublingual 0.4 mg sublingual UD 01/19/22 01/19/22 History tablet prednisolone 5 mg tablet 10 mg PO Q2D 01/19/22 01/19/22 History sertraline 25 mg tablet 25 mg PO HS 01/19/22 01/19/22 History Patient History Medical History Diabetes Hypertension Neuropathy Sarcoidosis Sciatica Social History Smoking Status: Never smoker Hx Alcohol Use: No Hx Substance Use: No Preferred Language: Japanese Religion Teacher Required: No Beliefs That Will Affect Care: None Current Living Situation: Alone and Family Current Living Situation Comment: lives alone in [place]; visiting with sister for few months Other Information That Helps Us Care for You: No Feels Safe at Home: Yes Safety Concerns: Feels Safe At This Time Physical Exam Physical Exam: General: A&Ox3. NAD. HENT: Normocephalic. Atraumatic. Eyes:? Mild exophthalmos PER. Conjunctiva pink, sclera clear. Neck: No carotid bruits. No JVD. No HJR. Heart: RRR. Soft systolic murmur. No rub. No gallop. Lungs: Clear to auscultation. Abdomen: +BS. Soft. Nontender. No masses or organomegaly. Extremities: No clubbing, cyanosis, or edema. Limited neurological examination is without focal deficits. Pulses: radial=2/4, posterior tibial=2/4. Results & Data ([place]) Vital Signs (Past 12 Hours) Vital Signs Temp Pulse Pulse Resp BP Pulse Ox O2 Del Method 01/19/22 07:44 36.8 C 77 17 121/76 97 Room Air 01/19/22 02:46 82 01/19/22 02:46 Room Air 01/19/22 02:46 36.8 C 81 20 145/79 H 94 Room Air 01/19/22 02:00 85 18 118/74 95 01/18/22 23:37 Room Air 01/18/22 23:06 81 18 136/69 99 Laboratory Results Cardiac Enzymes 01/18/22 01/18/22 01/19/22 Range/Units 19:07 22:07 08:38 AST 14 (13-39) U/L Troponin I High Sens 81.8 H* 406.6 H* D 780.5 H* D (0-14) pg/ml Coagulation 01/18/22 01/19/22 Range/Units 19:07 08:38 PT 10.4 (9.0-12.0) Seconds APTT 24.4 43.5 H (21.0-31.0) Seconds Lipids 01/19/22 Range/Units 08:38 Triglycerides 292 H (0-150) mg/dl Cholesterol 208 H (0-200) mg/dl HDL Cholesterol 37 mg/dl Cholesterol/HDL Ratio 5.6 H (0-5) CBC 01/18/22 01/19/22 Range/Units 19:07 08:38 WBC 15.60 H 10.70 (4.8-10.8) K/ul RBC 3.63 L 3.67 L (3.93-5.22) M/uL Hgb 10.2 L 10.2 L (12.0-16.0) g/dl Hct 32.3 L 31.9 L (34.1-44.9) % Plt Count 544 H 505 H (130-400) K/uL Neut # (Auto) 12.37 H 6.81 H (1.4-6.5) K/uL Lymph # (Auto) 2.24 3.10 (1.2-3.4) K/uL [place] # (Auto) 0.69 0.49 (0.24-0.82) K/uL Eos # (Auto) 0.18 0.21 (0-0.50) K/uL Baso # (Auto) 0.06 0.06 (0-0.2) K/uL Comprehensive Metabolic Panel 01/18/22 01/19/22 Range/Units 19:07 08:38 Sodium 135 L 140 (136-145) mmol/L Potassium 3.9 4.3 (3.5-5.1) mmol/L Chloride 100 103 (98-107) mmol/L Carbon Dioxide 25 28 (21-32) mmol/L BUN 26 H 20 (6-23) mg/dl Creatinine 1.26 H 1.08 (0.6-1.2) mg/dl Glucose 162 H 128 H (70-99(Fasting)) mg/dl Calcium 9.6 9.9 (8.5-10.1) mg/dl AST 14 (13-39) U/L ALT 14 (7-52) U/L Alkaline Phosphatase 57 (34-104) U/L Total Protein 7.7 (6.0-8.3) gm/dl Albumin 4.5 (3.4-5.0) gm/dl Intake and Output 01/18/22 01/19/22 01/19/22 22:59 06:59 14:59 Intake Total 146.817 / 146.817 Balance 146.817 / 146.817 Intake: IV 146.817 / 146.817 Heparin Sodium/Dextrose 25,000 146.817 / 146.817 units In 500 ml @ 1,150 UNITS/ HR 23 mls/hr IV .[id number] [facility] Rx #:[id number] Other: Weight 71.5 kg 70.2 kg Weight Measurement Method Standing Scale Diagnostic Findings Continuous telemetry monitoring reveals sinus throughout, currently with a heart rate of 72 bpm. No significant arrhythmias observed. January 19, 2022 TTE Interpretation Summary ([facility], Dr. Schulz): Normal LV chamber size and wall thickness. Left ventricular systolic function is normal. Ejection fraction 55 to 60%. Moderate hypokinesis of the anterior and anteroseptal wall segments consistent with LAD distribution. Otherwise, normal wall motion. Grade 1 diastolic dysfunction. Mild aortic valve sclerosis without significant stenosis. No previous studies available for comparison. (1) Chest pain Chest pain type: unspecified Qualified Code(s): R07.9 - Chest pain, unspecified
[2022-01-19] MEDS: ATORVASTATIN 40 MG TAB PO SCH (11:25)
[2022-01-19] MEDS ORDERED: Nursing to Pharmacy Communication SCH (12:15)
--- NOTE | 2022-01-19 14:35 | Hospitalist Progress Note ---
Date of Service January 19, 2022 Assessment & Plan (1) NSTEMI (non-ST elevated myocardial infarction): Plan: NSTEMI -EKG showed T wave inversions in anterior leads -CXR:No acute chest disease. -ECHO: Normal LV chamber size and wall thickness. Left ventricular systolic function is normal. EF 55 to 60%. Moderate hypokinesis of the anterior and anteroseptal wall segments consistent with LAD distribution. Grade 1 diastolic dysfunction. Aortic valve sclerosis mild, without significant aortic valvular stenosis. -Troponin levels trending up -Lipid Panel: Triglyceride 292, total cholesterol 208, LDL 113, VLDL 58, HDL 37. --Continue IV Heparin -Continue aspirin, Lipitor, metoprolol Appreciate cardiology input N.p.o. after midnight for cardiac catheterization tomorrow NTG PRN Hyperlipidemia Was on fenofibrate for now Continue Lipitor DM II Hold Metformin Utilize Insulin while hospitalized Monitor BGs H/O sarcoidosis seronegative RA On chronic steroid Resume home meds as able BILLIE Resolved with IV fluids Monitor renal function Avoid Nephrotoxic agents as able Iron deficiency anemia Vitamin B12 deficiency Hemoglobin stable H/O intolerance to oral iron Plan to start on supplements as able Mood disorder Continue home meds DVT Px: IV heparin Code Status Full code Admission and Anticipated Discharge Date Admission Date: January 19, 2022 Subjective Patient is seen and examined at bedside Chest pain resolved Denies any dyspnea, dizziness, nausea, abdominal pain Family at bedside Offers no other complaints Currently on IV heparin, no bleeding issues Plan for cardiac cath tomorrow Review of Systems Review of Systems: All systems reviewed & are unremarkable except as noted in Subjective Physical Exam Physical Exam: Physical Exam: Vitals signs as noted above General Appearance:Moderately built and nourished, no apparent distress Head: normocephalic, Atraumatic Eyes: normal inspection, EOMI Neck: supple, Trachea midline Respiratory/Chest: Normal breath sounds, CTA, No accessory muscle use Cardiovascular: S1, S2, + murmur Abdomen/GI:Soft, Non tender, Bowel sounds present Extremities/Musculoskeletal:normal inspection, no edema Neurologic/Psych:AAOX3, grossly no focal neurological deficits Skin: normal color, warm Results & Data Results & Data ([facility]) Vital Signs (Past 12 Hours) Vital Signs Temp Pulse Pulse Resp BP Pulse Ox O2 Del Method 01/19/22 11:09 36.7 C 71 20 155/76 H 96 Room Air 01/19/22 07:45 72 01/19/22 07:45 Room Air 01/19/22 07:44 36.8 C 77 17 121/76 97 Room Air 01/19/22 02:46 82 01/19/22 02:46 Room Air 01/19/22 02:46 36.8 C 81 20 145/79 H 94 Room Air Laboratory Results Short CBC 01/18/22 01/19/22 Range/Units 19:07 08:38 WBC 15.60 H 10.70 (4.8-10.8) K/ul Hgb 10.2 L 10.2 L (12.0-16.0) g/dl Hct 32.3 L 31.9 L (34.1-44.9) % Plt Count 544 H 505 H (130-400) K/uL BMP 01/18/22 01/19/22 19:07 08:38 Sodium 135 L 140 Potassium 3.9 4.3 Chloride 100 103 Carbon Dioxide 25 28 BUN 26 H 20 Creatinine 1.26 H 1.08 Glucose 162 H 128 H Calcium 9.6 9.9 Liver Function 01/18/22 Range/Units 19:07 Total Bilirubin 0.2 (0.2-1.0) mg/dl AST 14 (13-39) U/L ALT 14 (7-52) U/L Alkaline Phosphatase 57 (34-104) U/L Albumin 4.5 (3.4-5.0) gm/dl Urine 01/18/22 Range/Units 22:56 Urine Color Yellow Urine Appearance Clear (Clear) Urine pH 5.5 (4.5-7.5) Ur Specific [place] 1.005 (1.000-1.030) Urine Protein Negative (Negative) Urine Glucose (UA) Negative (Negative)
[2022-01-19 15:29] LABS: Partial Thromboplastin Ratio 1.4; Partial Thromboplastin Time 37.3 Seconds (21.0-31.0)
[2022-01-19] MEDS ORDERED: HEPARIN SOD (PORCINE) 1000 UNIT/ML IV ONE (16:15)
--- NOTE | 2022-01-19 17:43 | Electrocardiogram Report ---
Test Reason : Blood Pressure : / mmHG Vent. Rate : 075 BPM Atrial Rate : 075 BPM P-R Int : 148 ms QRS Dur : 078 ms QT Int : 376 ms P-R-T Axes : 063 017 045 degrees QTc Int : 419 ms Normal sinus rhythm Possible Left atrial enlargement Borderline ECG No previous ECGs available Confirmed by Ernst Jade ([id number]) on 01/19/2022 5:43:13 PM Referred By: REFERRED SELF Confirmed By:Antonio Jade
--- NOTE | 2022-01-19 17:52 | Electrocardiogram Report ---
Test Reason : Blood Pressure : / mmHG Vent. Rate : 069 BPM Atrial Rate : 069 BPM P-R Int : 152 ms QRS Dur : 084 ms QT Int : 408 ms P-R-T Axes : 064 068 094 degrees QTc Int : 437 ms Normal sinus rhythm T wave abnormality, consider anterior ischemia Abnormal ECG When compared with ECG of 18-JAN-2022 18:56, (unconfirmed) T wave inversion more evident in Anterior leads Confirmed by Ernst Jade ([id number]) on 01/19/2022 5:52:21 PM Referred By: REFERRED SELF Confirmed By:Antonio Jade
[2022-01-19] MEDS: allopurinoL 300 MG TAB PO SCH (19:48)
[2022-01-19] MEDS: FOLIC ACID 1 MG TAB PO SCH (19:49)
[2022-01-19] MEDS: GABAPENTIN 300 MG CAP PO SCH (19:50)
[2022-01-19] MEDS: SERTRALINE HCL 50 MG TABLET PO SCH (19:55)
[2022-01-19 23:19] LABS: Partial Thromboplastin Ratio 2.9
[2022-01-19 23:56] LABS: Partial Thromboplastin Time 80.6 Seconds (21.0-31.0)
[2022-01-20 06:30] LABS: Hematocrit (blood only) 32.4 % (34.1-44.9); Hemoglobin 10.2 g/dl (12.0-16.0); Mean Corpuscular Hemoglobin 27.6 pg (25.0-34.0); Mean Corpuscular Hgb Conc 31.5 g/dL (32.0-36.0); Mean Corpuscular Volume 87.8 fL (80.0-100.0); Mean Platelet Volume 8.7 fL (9.4-12.3); Platelet Count 498 K/uL (130-400); RDW Coefficient of Variation 12.7 % (11.5-14.5); RDW Standard Deviation 40.7 fL (36.4-46.3); Red Blood Count 3.69 M/uL (3.93-5.22); White Blood Count 9.42 K/ul (4.8-10.8)
[2022-01-20 06:54] LABS: Partial Thromboplastin Ratio 3.1
[2022-01-20 07:04] LABS: Partial Thromboplastin Time 85.5 Seconds (21.0-31.0)
[2022-01-20 07:13] LABS: BUN Creatinine Ratio 16.8 (10-20); Calcium 9.8 mg/dl (8.5-10.1); Creatinine Clr Calc Pharmacy 49.4 ml/min; Est GFR (African American) 57.5 ml/min; Est GFR (Non-African American) 49.6 ml/min; Magnesium 1.7 mg/dl (1.7-2.4); Potassium 4.5 mmol/L (3.5-5.1)
[2022-01-20 08:05] LABS: Partial Thromboplastin Ratio 2.3
[2022-01-20] MEDS: HEPARIN SODIUM/DEXTROSE 25,000 UNITS/500 ML BAG IV SCH (08:16)
[2022-01-20 08:17] LABS: Partial Thromboplastin Time 63.3 Seconds (21.0-31.0)
[2022-01-20] MEDS ORDERED: MIDAZOLAM HCL 1 MG/ML 2ML VIAL ONE (08:42)
[2022-01-20] MEDS ORDERED: HEPARIN (PORCINE) 1000 UNIT/ML 10 ML (CATH LAB USE ONLY) ONE (08:42)
[2022-01-20] MEDS ORDERED: fentaNYL citrate 100 MCG/2 ML VIAL ONE (08:42)
[2022-01-20] MEDS ORDERED: niCARdipine HCL INJ 2.5 MG/ML 10 ML AMP ONE (08:42)
[2022-01-20] MEDS ORDERED: NITROGLYCERIN/D5W 100MCG/ML 20ML SYR ONE (08:43)
[2022-01-20] MEDS: INSULIN ASPART PER UNIT SC SCH ×4 (09:04→21:09)
--- NOTE | 2022-01-20 10:10 | Cardiac Catheterization ---
Date of Service January 20, 2022 Cardiac Cath Report Cardiac Cath Report Procedure: 1. Left heart catheterization #2 coronary angiography History: This is a 61-year-old diabetic female visiting from [place]. She speaks [place] as her second language. She was admitted with chest pain and found to have a non-STEMI with the echocardiogram indicating an LAD distribution. Procedure summary: After informed consent was obtained Access was obtained using a retrograde Salinger technique from the right radial artery. Preformed 5 Algerian diagnostic catheters were utilized for the coronary angiograms. A 5 Algerian pigtail catheter was utilized for left heart pressures. Following the procedure the patient underwent coronary intervention on the LAD. ACC data: Start time 9:38 AM End time 9:54 AM Opening aortic pressure 142/95 Left ventricular pressure 146/2 Aortic pressure 152/80 Sedation 1 mg intravenous Versed IV fluid 50 cc normal saline Contrast 96 cc Optiray Fluoroscopy time 6.4 minutes Radiation 795 mGy DAP 64.60 Cui per centimeter squared Left dominant system AUC score 9 Coronary angiography: The patient has a dual ostium left main trunk. The LAD extends all the way around the apex of the heart. The LAD gives off 2 large diagonal branches. Just prior to the takeoff of the first diagonal branch there is a high-grade 90- 95% stenoses. The left circumflex artery is dominant. The left circumflex artery gives off 3 marginal branches that supplied the lateral myocardium and then a PDA branch distally. The left circumflex artery is widely patent. Injections into the right coronary artery reveal it to be small and nondominant. Summary: The patient has a high-grade stenoses of the mid LAD just before the takeoff of a large diagonal branch. The patient has a left dominant system. The remainder the coronary anatomy is widely patent. Recommendations: Coronary intervention on the LAD.
[2022-01-20] MEDS ORDERED: CLOPIDOGREL BISULFATE 300 MG TAB ONE (10:38)
--- NOTE | 2022-01-20 10:58 | Post Anesthesia Assessment ---
Date of Service January 20, 2022 Post Sedation Assessment Vital Signs Temp Pulse Pulse Resp BP Pulse Ox O2 Del Method 01/20/22 10:51 80 17 156/76 H 91 Room Air 01/20/22 09:12 77 01/20/22 08:58 87 15 184/97 H 96 Room Air 01/20/22 07:07 98.2 F 85 18 142/78 H 97 Room Air 01/20/22 03:09 98.1 F 86 18 118/71 94 Room Air 01/20/22 01:12 82 01/19/22 23:42 97.9 F 76 18 122/73 96 Room Air 01/19/22 22:42 98.1 F 81 16 130/76 97 Room Air 01/19/22 19:40 98.8 F 88 18 151/76 H 99 Room Air 01/19/22 16:29 90 01/19/22 15:19 97.7 F 85 20 139/78 95 Room Air 01/19/22 11:09 98.1 F 71 20 155/76 H 96 Room Air Recovery Score Activity: Moves 4 extremities Respiration: Deep Breath/Cough Circulation: +/-20% PreAnes Value Consciousness: Fully Awake Oxygen Saturation: O2 needed for >90% Discharge Sedation Level of Care: Fast Track Phase II Post Sedation Plan On clinical assessment, the patient appears to have tolerated the sedation without complications. Patient is recovering as anticipated. Patient will continue to be monitored by nursing and may be discharged when sedation discharge criteria are met per below protocol. Upon Completions of procedure up to 15 minutes continue every 5 minute vital signs and the P.A.R. score; then discharge to a Phase I or Fast Track to Phase II per the following guidelines: * Discharge Patient to appropriate Phase II area if PAR is 8 or greater or return to pre- procedure baseline. The post - procedure orders will be as directed. * If PAR score is less than 8 or not return to pre-procedure baseline then patient will follow Phase I monitoring till PAR is reached for Phase II. The Phase I may be done in procedure room or may call to secure a Phase I area. * If naloxone or flumazenil are used for reversal, hold in Phase I for continued monitoring from when last reversal dose was given for a minimum of 60 minutes or longer pending the nurse and/or physician discretion of patient condition before discharge to Phase II. Please call the Sedation Physician to re-evaluate and complete post-note for discharge to Phase II area. Do NOT discharge from procedure sedation or Phase 1 until post- sedation evaluation note is complete by procedure /sedation MD Sedation Discharge Instructions to be given to the patient at discharge to home.
--- NOTE | 2022-01-20 11:07 | Cardiac Catheterization ---
[facility] Data: Spud Grader Cardiac Status Clinical evaluation leading to the procedure CAD Presenation: Non STEMI Diagnostic Physicians Name: Ernst Hernandez MD Closure Device Recommendations: PCI without planned CABG Cardiac Cath Procedure Full Procedure Date January 20, 2022 Pre-Procedure Diagnosis Pre-Procedure Diagnosis: Non STEMI AUC Score AUC Score: 8 Post-Procedure Diagnosis Post-Procedure Diagnosis: Severe CAD and Successful PCI Procedure(s) Performed Procedure(s) Performed: Coronary Angiography, Drug Eluting Stent and IVUS Local Hazmat Driver Ernst Hernandez MD Windows Desktop Engineer(s) Renaldo Estimated Blood Loss Estimated Blood Loss: 15 Medication(s) Medication(s): Clopidogrel, Fentanyl, Heparin, Nicardipine, Nitroglycerin and Versed Summary of Findings Indication: NSTEMI Access: 6 Fr right radial artery Catheters: EBU 3.5 guide Findings: For full details of patient's coronary angiography please see cath report dictated by Dr. Bernard. Briefly, patient found to have severe mid LAD disease. Decision to proceed with PCI. -- PCI -- Antithrombotic therapy: Heparin, clopidogrel Procedure: Left main cannulated with EBU 3.5 guide Pre-procedure flow ONEAL 3 Pattern Changer And Repairer 50 wire passed across lesion into distal vessel Tatums IVUS catheter placed into mid LAD. Pullback revealed severe diffuse disease with concentric calcium in the midsegment. No significant ostial LAD disease. Separate ostium. Proximal to mid LAD stented with 3.0 x 28 mm Xience drug-eluting stent Stent post-dilated with 3.5 noncompliant balloon Repeat IVUS showed well apposed, well-expanded stent with no apparent edge complications. IC vasodilators administered for spasm. Small jailed diagonal with ONEAL-3 flow Post procedure ONEAL 3 flow in LAD, stent well expanded with minimal residual stenosis and no apparent cardiac complications. Arterial Closure: TR band Summary: 1. Successful PCI of proximal to mid LAD with single drug-eluting stent (3.0 x 28 mm Xience; postdilated with 3.5 NC). Recommendations: To PCU for continued monitoring Loaded with clopidogrel 600 mg in Spud Grader Continue dual-antiplatelet therapy for at least 1 year Continue statin, and ASCVD risk factor modification Consult cardiac Rehab Hemodynamics Rest Ao:: 120/61/87 Final Ao: 132/76/96 LV: -- Recommendations Recommendations: PCI without planned CABG Specimens Specimens: None Radiation Exposure (mGy) 2604 Contrast (mls) 50 for intervention, total 154 Anesthesia Moderate 8894-7054 Procedural Complication(s) None Disposition PCU I attest to the content of the Intraoperative Record and any orders documented therein. Any exceptions are noted below. [facility] Card Cath Procedure Codes Therapeutic Services & Ancillary Procedure 1: Cardiovascular Tx and Anc Procedures: 24306 IV Ultrasound (Coronary or Graft) Moderate Sedation Procedure 1: Sedation/Anesthesia: 99641 Mod Sedation by the same physician; Ea [id number] Minutes Stenting Procedure 1: Cardiovascular Stent Procedures: 39177 Perc transcatheter placement of intracoronary stent(s), with ang PG Care Time/CCT Total # of Minutes Spent Total Time Spent with Patient: Total time spent is greater than 50% in coordination of care (as documented) at patient's floor/unit and/or counseling patient:
[2022-01-20] MEDS ORDERED: SODIUM CHLORIDE 0.9% 1000ML 1,000 ML IV SCH (11:15)
[2022-01-20] MEDS: ASPIRIN 81 MG ECTAB PO SCH (11:31)
[2022-01-20] MEDS: FOLIC ACID 1 MG TAB PO SCH ×2 (11:32→21:12)
[2022-01-20] MEDS: ATORVASTATIN 40 MG TAB PO SCH (11:32)
[2022-01-20] MEDS: METOPROLOL TARTRATE 25 MG TAB PO SCH ×2 (11:33→16:49)
--- NOTE | 2022-01-20 12:50 | Cardiology Progress Note ---
Date of Service January 20, 2022 Assessment & Plan (1) Unstable angina: (2) Chest pain: (3) Elevated troponin I level: (4) NSTEMI (non-ST elevated myocardial infarction): (5) Ischemic cardiomyopathy: Plan 61-year-old female with multiple cardiac risk factors admitted with resting chest pain, unstable angina presentation, NSTEMI. Status post successful PCI of the proximal to mid LAD on 01/20/2022. Continue dual antiplatelet therapy for 1 year. Patient requesting hardcopies of medical records to bring to her physician in [place]. Continue to monitor overnight with likely DC in the a.m. Restrictions reviewed. My office will call to arrange follow-up before the patient leaves back to her home country of [place] in 6 weeks. Will change beta-vasiliy to evidence-based beta-vasiliy metoprolol succinate for the a.m. Will also start low-dose losartan given reduced EF. Outpatient BMP in 1 week to follow renal function and electrolytes Admission and Anticipated Discharge Date Admission Date: January 19, 2022 Subjective Patient seen and examined. Chart reviewed. Telemetry reviewed. Family at bedside. States that she had some slight chest discomfort during the middle of the night but otherwise feeling well Review of Systems Review of Systems: All systems reviewed & are unremarkable except as noted in HPI & below Physical Exam Physical Exam: General: Awake, alert and oriented x 3. No acute distress. HEENT: Normocephalic, atraumatic. Pupils equal, round and reactive to light and accommodation. Extraocular muscles are intact. Anicteric sclera. Moist mucous membranes. Neck: No JVD. No bruit. Cardiovascular: Regular. Positive S-4. Normal S-1 and S-2. No S-3. No murmurs or rubs. Pulmonary: Clear to auscultation B/L. No rales, rhonchi or wheezing Abdomen: Bowel sounds x 4, soft. No rebound, guarding or tenderness. No organomegaly. Extremities: No clubbing, cyanosis or edema. +2 pedal pulses bilaterally. Skin: Warm and dry. Results & Data ([facility]) Vital Signs (Past 12 Hours) Vital Signs Temp Pulse Pulse Resp BP Pulse Ox O2 Del Method 01/20/22 11:52 36.6 C 74 18 140/72 Room Air 01/20/22 11:37 36.6 C 77 18 134/54 L 92 01/20/22 11:22 36.6 C 76 18 133/80 93 Room Air 01/20/22 11:07 36.6 C 77 16 134/81 92 Room Air 01/20/22 11:00 72 17 149/81 H 94 Room Air 01/20/22 10:51 80 17 156/76 H 91 Room Air 01/20/22 09:12 77 01/20/22 08:58 87 15 184/97 H 96 Room Air 01/20/22 07:07 36.8 C 85 18 142/78 H 97 Room Air 01/20/22 03:09 36.7 C 86 18 118/71 94 Room Air 01/20/22 01:12 82 (1) Chest pain Chest pain type: unspecified Qualified Code(s): R07.9 - Chest pain, unspecified
[2022-01-20] MEDS: LOSARTAN POTASSIUM 25 MG TAB PO SCH (13:49)
--- NOTE | 2022-01-20 14:50 | Hospitalist Progress Note ---
Date of Service January 20, 2022 Assessment & Plan (1) NSTEMI (non-ST elevated myocardial infarction): Plan: NSTEMI -EKG showed T wave inversions in anterior leads -CXR:No acute chest disease. -ECHO: Normal LV chamber size and wall thickness. Left ventricular systolic function is normal. EF 55 to 60%. Moderate hypokinesis of the anterior and anteroseptal wall segments consistent with LAD distribution. Grade 1 diastolic dysfunction. Aortic valve sclerosis mild, without significant aortic valvular stenosis. -Troponin levels trending up -Lipid Panel: Triglyceride 292, total cholesterol 208, LDL 113, VLDL 58, HDL 37. --Continue IV Heparin -Continue aspirin, Lipitor, metoprolol Appreciate cardiology input N.p.o. after midnight for cardiac catheterization tomorrow NTG PRN Status post cardiac cath severe CAD and successful placement of drug-eluting stent 3.0 x 28 mm Xience post dilated with 3.5 NC in proximal to mid LAD Remained stable following the procedure Be discharged home tomorrow-we will need to continue aspirin Plavix for 1 year and ASCVD risk factor modification Hyperlipidemia Was on fenofibrate for now Continue Lipitor DM II Hold Metformin Utilize Insulin while hospitalized Monitor BGs H/O sarcoidosis seronegative RA On chronic steroid Resume home meds as able BILLIE Resolved with IV fluids Monitor renal function Avoid Nephrotoxic agents as able Iron deficiency anemia Vitamin B12 deficiency Hemoglobin stable H/O intolerance to oral iron Plan to start on supplements as able Mood disorder Continue home meds DVT Px: IV heparin Code Status Full code Admission and Anticipated Discharge Date Admission Date: January 19, 2022 Subjective 01/20/2022 The patient was seen and examined in telemetry unit She is visiting from [place] and has had a NSTEMI Status post cardiac cath and stent placement in mid LAD Has been feeling fine following the procedure Review of Systems Review of Systems: All systems reviewed and are unremarkable except as noted below Physical Exam Physical Exam: Lying in bed comfortably Constitutional: well developed, well nourished and + obese; not ill appearing Eyes: PERRL, conjunctivae normal, anicteric sclerae ENMT: external ear and nose normal, oropharynx normal Neck: trachea midline, no thyromegaly Respiratory: no respiratory distress Cardiovascular: Rate/Rhythm: regular rate and regular rhythm; not tachycardic Heart Sounds: normal S1 and normal S2; no murmur Extremities: no edema Gastrointestinal (Abdomen): Inspection/Auscultation: normal bowel sounds; abdomen not distended Percussion/Palpation: abdomen soft; abdomen nontender Musculoskeletal: No acute arthritis in any joint Neurologic: Alert awake and oriented x3. No focal sensory and motor deficit appreciated Lymphatic: no cervical or axillary lymphadenopathy Results & Data Results & Data ([facility]) Vital Signs (Past 12 Hours) Vital Signs Temp Pulse Pulse Resp BP Pulse Ox O2 Del Method 01/20/22 13:52 36.6 C 77 16 136/76 92 Room Air 01/20/22 12:52 36.6 C 72 18 140/67 94 Room Air 01/20/22 12:22 36.6 C 72 18 134/74 92 Room Air 01/20/22 11:52 36.6 C 74 18 140/72 Room Air 01/20/22 11:37 36.6 C 77 18 134/54 L 92 01/20/22 11:22 36.6 C 76 18 133/80 93 Room Air 01/20/22 11:07 36.6 C 77 16 134/81 92 Room Air 01/20/22 11:00 72 17 149/81 H 94 Room Air 01/20/22 10:51 80 17 156/76 H 91 Room Air 01/20/22 09:12 77 01/20/22 08:58 87 15 184/97 H 96 Room Air 01/20/22 07:07 36.8 C 85 18 142/78 H 97 Room Air 01/20/22 03:09 36.7 C 86 18 118/71 94 Room Air Laboratory Results Short CBC 01/20/22 Range/Units 06:12 WBC 9.42 (4.8-10.8) K/ul Hgb 10.2 L (12.0-16.0) g/dl Hct 32.4 L (34.1-44.9) % Plt Count 498 H (130-400) K/uL BMP 01/20/22 06:12 Sodium 138 Potassium 4.5 Chloride 101 Carbon Dioxide 30 BUN 20 Creatinine 1.19 Glucose 138 H Calcium 9.8 Medications Administered Current Inpatient Medications Acetaminophen (Acetaminophen 325 Mg Tab) 650 mg PO Q4H PRN PRN Reason: Pain or Fever Stop: 02/18/22 02:45 Allopurinol (Allopurinol 300 Mg Tab) 150 mg PO HS EBEN Stop: 02/18/22 20:59 Last Admin: 01/19/22 19:48 Dose: 150 mg Aspirin (Aspirin 81 Mg Ectab) 81 mg PO [facility] Stop: 02/18/22 08:59 Last Admin: 01/20/22 11:31 Dose: 81 mg Atorvastatin Calcium (Atorvastatin 40 Mg Tab) 80 mg PO [facility] Stop: 02/18/22 10:14 Last Admin: 01/20/22 11:32 Dose: 80 mg Clopidogrel Bisulfate (Clopidogrel Bisulfate 75 Mg Tab) 75 mg PO [facility] Stop: 02/20/22 08:59 Dextrose (Dextrose 50% 50 Ml Syringe) 25 - 50 ml IV UD PRN; Protocol PRN Reason: Hypoglycemia Protocol Stop: 02/18/22 02:45 Folic Acid (Folic Acid 1 Mg Tab) 5 mg PO BID [facility] Stop: 02/18/22 20:59 Last Admin: 01/20/22 11:32 Dose: 5 mg Gabapentin (Gabapentin 300 Mg Cap) 300 mg PO [facility] Stop: 02/18/22 20:59 Last Admin: 01/19/22 19:50 Dose: 300 mg Glucagon (Glucagon For Inj 1 Mg Vial) 1 mg SQ UD PRN; Protocol PRN Reason: Hypoglycemia Protocol Stop: 02/18/22 02:45 Glucose (Glucose 40% Gel 15 Gm Tube) 15 - 30 gm PO UD PRN; Protocol PRN Reason: Hypoglycemia Protocol Stop: 02/18/22 02:45 Glucose (Glucose 10 Tab/Tube) 4 - 8 tab PO UD PRN; Protocol PRN Reason: Hypoglycemia Treatment Stop: 02/18/22 02:45 Hydromorphone HCl (Hydromorphone Inj 0.5 Mg/0.5 Ml Syr) 0.5 mg IV Q3H PRN PRN Reason: Pain Stop: 02/02/22 02:45 Promethazine HCl 12.5 mg/ (Sodium Chloride) 50.5 mls @ 202 mls/hr IV Q6H PRN PRN Reason: Nausea And Vomiting Stop: 02/18/22 02:45 Insulin Aspart (Insulin Aspart Per Unit) 0 units [facility] Stop: 02/18/22 16:29 Last Admin: 01/20/22 16:48 Dose: 4 units Lorazepam (Lorazepam 0.5 Mg Tab) 0.5 mg PO TID PRN PRN Reason: Anxiety Stop: 02/18/22 02:45 Losartan Potassium (Losartan Potassium 25 Mg Tab) 25 mg PO QAM [facility] Stop: 02/19/22 12:59 Last Admin: 01/20/22 13:49 Dose: 25 mg Metoprolol Succinate (Metoprolol Succ 50mg Ext Rel Tab) 50 mg PO QAM [facility] Stop: 02/20/22 08:59 Metoprolol Tartrate (Metoprolol Tartrate 25 Mg Tab) 25 mg PO BID17 [facility] Stop: 02/19/22 16:59 Last Admin: 01/20/22 16:49 Dose: 25 mg Miscellaneous (Carbohydrates For Hypoglycemia ) 15 - 30 gm PO UD PRN PRN Reason: Hypoglycemia Protocol Stop: 02/18/22 02:45 Nitroglycerin (Nitroglycerin Sl 0.4 Mg/Tab Tab) 0.4 mg SL UD PRN PRN Reason: Chest Pain Stop: 02/18/22 02:45 Sertraline HCl (Sertraline Hcl 50 Mg Tablet) 25 mg PO HS [facility] Stop: 02/18/22 20:59 Last Admin: 01/19/22 19:55 Dose: 25 mg Tramadol HCl (Tramadol Hcl 50 Mg Tablet) 25 - 50 mg PO Q4H PRN PRN Reason: Pain Stop: 02/18/22 02:45
--- NOTE | 2022-01-20 15:00 | Electrocardiogram Report ---
Test Reason : Blood Pressure : / mmHG Vent. Rate : 069 BPM Atrial Rate : 069 BPM P-R Int : 144 ms QRS Dur : 082 ms QT Int : 470 ms P-R-T Axes : 056 037 103 degrees QTc Int : 503 ms Normal sinus rhythm Marked T wave abnormality consider anterolateral ischemia Prolonged QT Abnormal ECG When compared with ECG of 19-JAN-2022 09:26, T wave inversion now evident in Lateral leads QT has lengthened Confirmed by Ernst Jade ([id number]) on 01/20/2022 3:00:06 PM Referred By: REFERRED SELF Confirmed By:Antonio Jade
--- NOTE | 2022-01-20 15:04 | Electrocardiogram Report ---
Test Reason : Blood Pressure : / mmHG Vent. Rate : 073 BPM Atrial Rate : 073 BPM P-R Int : 152 ms QRS Dur : 078 ms QT Int : 438 ms P-R-T Axes : 057 015 090 degrees QTc Int : 482 ms Normal sinus rhythm Nonspecific T wave abnormality Prolonged QT Abnormal ECG When compared with ECG of 20-JAN-2022 05:11, (unconfirmed) T wave inversion less evident in Anterolateral leads Confirmed by Ernst Jade ([id number] on 01/20/2022 3:03:59 PM Referred By: REFERRED SELF Confirmed By:Antonio Jade
[2022-01-20] MEDS: SERTRALINE HCL 50 MG TABLET PO SCH (21:11)
[2022-01-20] MEDS: allopurinoL 300 MG TAB PO SCH (21:12)
[2022-01-20] MEDS: GABAPENTIN 300 MG CAP PO SCH (21:13)
[2022-01-21] MEDS ORDERED: CLOPIDOGREL BISULFATE 75 MG TAB PO SCH (09:00)
[2022-01-21] MEDS ORDERED: METOPROLOL SUCC 50MG EXT REL TAB PO SCH (09:00)
[2022-01-21] MEDS: ASPIRIN 81 MG ECTAB PO SCH (09:05)
[2022-01-21] MEDS: INSULIN ASPART PER UNIT SC SCH (09:05)
[2022-01-21] MEDS: ATORVASTATIN 40 MG TAB PO SCH (09:06)
[2022-01-21] MEDS: FOLIC ACID 1 MG TAB PO SCH (09:06)
[2022-01-21] MEDS: LOSARTAN POTASSIUM 25 MG TAB PO SCH (09:06)
[2022-01-21] MEDS: METOPROLOL TARTRATE 25 MG TAB PO SCH (09:08)
--- NOTE | 2022-01-21 10:05 | Hospitalist Progress Note ---
Date of Service January 21, 2022 Assessment & Plan (1) NSTEMI (non-ST elevated myocardial infarction): Plan: NSTEMI -EKG showed T wave inversions in anterior leads -CXR:No acute chest disease. -ECHO: Normal LV chamber size and wall thickness. Left ventricular systolic function is normal. EF 55 to 60%. Moderate hypokinesis of the anterior and anteroseptal wall segments consistent with LAD distribution. Grade 1 diastolic dysfunction. Aortic valve sclerosis mild, without significant aortic valvular stenosis. -Troponin levels trending up -Lipid Panel: Triglyceride 292, total cholesterol 208, LDL 113, VLDL 58, HDL 37. --Continue IV Heparin -Continue aspirin, Lipitor, metoprolol Appreciate cardiology input N.p.o. after midnight for cardiac catheterization tomorrow NTG PRN Status post cardiac cath severe CAD and successful placement of drug-eluting stent 3.0 x 28 mm Xience post dilated with 3.5 NC in proximal to mid LAD Remained stable following the procedure Be discharged home tomorrow-we will need to continue aspirin Plavix for 1 year and ASCVD risk factor modification No significant symptoms and she is ambulating without any difficulties No significant arrhythmias Should be discharged home this morning Hyperlipidemia Was on fenofibrate for now Continue Lipitor DM II Hold Metformin Utilize Insulin while hospitalized Monitor BGs H/O sarcoidosis seronegative RA On chronic steroid Resume home meds as able BILLIE Resolved with IV fluids Monitor renal function Avoid Nephrotoxic agents as able Iron deficiency anemia Vitamin B12 deficiency Hemoglobin stable H/O intolerance to oral iron Plan to start on supplements as able Mood disorder Continue home meds DVT Px: IV heparin Code Status Full code Admission and Anticipated Discharge Date Admission Date: January 19, 2022 Subjective 01/20/2022 The patient was seen and examined in telemetry unit She is visiting from [place] and has had a NSTEMI Status post cardiac cath and stent placement in mid LAD Has been feeling fine following the procedure 01/21/2022 The patient was seen and examined in telemetry unit She has been feeling much better and denies any significant symptoms She has had 3 beats of V. tach once so far without any symptoms She denies any chest pain, palpitation or shortness of breath and she has been ambulating in the room without any difficulties Review of Systems Review of Systems: All systems reviewed and are unremarkable except as noted below Physical Exam Physical Exam: Lying in bed comfortably Constitutional: well developed, well nourished and + obese; not ill appearing Eyes: PERRL, conjunctivae normal, anicteric sclerae ENMT: external ear and nose normal, oropharynx normal Neck: trachea midline, no thyromegaly Respiratory: no respiratory distress Cardiovascular: Rate/Rhythm: regular rate and regular rhythm; not tachycardic Heart Sounds: normal S1 and normal S2; no murmur Extremities: no edema Gastrointestinal (Abdomen): Inspection/Auscultation: normal bowel sounds; abdomen not distended Percussion/Palpation: abdomen soft; abdomen nontender Musculoskeletal: No acute arthritis in any joint Neurologic: Alert, awake and oriented x3. No focal sensory and or motor deficit appreciated Lymphatic: no cervical or axillary lymphadenopathy Results & Data Results & Data ([facility]) Vital Signs (Past 12 Hours) Vital Signs Temp Pulse Pulse Resp BP Pulse Ox O2 Del Method 01/21/22 07:25 36.8 C 102 H 117/77 95 Room Air 01/21/22 03:00 36.8 C 92 H 18 112/74 98 Room Air 01/21/22 00:00 94 H 01/20/22 22:49 37.1 C 93 H 18 132/79 96 Room Air Medications Administered Current Inpatient Medications Acetaminophen (Acetaminophen 325 Mg Tab) 650 mg PO Q4H PRN PRN Reason: Pain or Fever Stop: 02/18/22 02:45 Allopurinol (Allopurinol 300 Mg Tab) 150 mg PO HS [facility] Stop: 02/18/22 20:59 Last Admin: 01/20/22 21:12 Dose: 150 mg Aspirin (Aspirin 81 Mg Ectab) [facility] Stop: 02/18/22 08:59 Last Admin: 01/21/22 09:05 Dose: 81 mg Atorvastatin Calcium (Atorvastatin 40 Mg Tab) [facility] [place] Stop: 02/18/22 10:14 Last Admin: 01/21/22 09:06 Dose: 80 mg Clopidogrel Bisulfate (Clopidogrel Bisulfate 75 Mg Tab) [facility] Stop: 02/20/22 08:59 Last Admin: 01/21/22 09:06 Dose: 75 mg Dextrose (Dextrose 50% 50 Ml Syringe) 25 - 50 ml IV UD PRN; Protocol PRN Reason: Hypoglycemia Protocol Stop: 02/18/22 02:45 Folic Acid (Folic Acid 1 Mg Tab) 5 mg PO BID [facility] Stop: 02/18/22 20:59 Last Admin: 01/21/22 09:06 Dose: 5 mg Gabapentin (Gabapentin 300 Mg Cap) 300 mg PO HS [facility] Stop: 02/18/22 20:59 Last Admin: 01/20/22 21:13 Dose: Not Given Glucagon (Glucagon For Inj 1 Mg Vial) 1 mg SQ UD PRN; Protocol PRN Reason: Hypoglycemia Protocol Stop: 02/18/22 02:45 Glucose (Glucose 40% Gel 15 Gm Tube) 15 - 30 gm PO UD PRN; Protocol PRN Reason: Hypoglycemia Protocol Stop: 02/18/22 02:45 Glucose (Glucose 10 Tab/Tube) 4 - 8 tab PO UD PRN; Protocol PRN Reason: Hypoglycemia Treatment Stop: 02/18/22 02:45 Hydromorphone HCl (Hydromorphone Inj 0.5 Mg/0.5 Ml Syr) 0.5 mg IV Q3H PRN PRN Reason: Pain Stop: 02/02/22 02:45 Promethazine HCl 12.5 mg/ (Sodium Chloride) 50.5 mls @ 202 mls/hr IV Q6H PRN PRN Reason: Nausea And Vomiting Stop: 02/18/22 02:45 Insulin Aspart (Insulin Aspart Per Unit) 0 units SC ACHS [facility] Stop: 02/18/22 16:29 Last Admin: 01/21/22 09:05 Dose: 3 units Lorazepam (Lorazepam 0.5 Mg Tab) 0.5 mg PO TID PRN PRN Reason: Anxiety Stop: 02/18/22 02:45 Losartan Potassium (Losartan Potassium 25 Mg Tab) 25 mg PO QAM [facility] Stop: 02/19/22 12:59 Last Admin: 01/21/22 09:06 Dose: 25 mg Metoprolol Succinate (Metoprolol Succ 50mg Ext Rel Tab) 50 mg PO QAM [facility] Stop: 02/20/22 08:59 Last Admin: 01/21/22 09:07 Dose: 50 mg Metoprolol Tartrate (Metoprolol Tartrate 25 Mg Tab) 25 mg PO BID17 [facility] Stop: 02/19/22 16:59 Last Admin: 01/21/22 09:08 Dose: 25 mg Miscellaneous (Carbohydrates For Hypoglycemia ) 15 - 30 gm PO UD PRN PRN Reason: Hypoglycemia Protocol Stop: 02/18/22 02:45 Nitroglycerin (Nitroglycerin Sl 0.4 Mg/Tab Tab) 0.4 mg SL UD PRN PRN Reason: Chest Pain Stop: 02/18/22 02:45 Sertraline HCl (Sertraline Hcl 50 Mg Tablet) 25 mg PO HS [facility] Stop: 02/18/22 20:59 Last Admin: 01/20/22 21:11 Dose: 25 mg Tramadol HCl (Tramadol Hcl 50 Mg Tablet) 25 - 50 mg PO Q4H PRN PRN Reason: Pain Stop: 02/18/22 02:45
--- NOTE | 2022-01-21 11:19 | Cardiology Progress Note ---
Date of Service January 21, 2022 Assessment & Plan (1) Unstable angina: (2) Chest pain: (3) Elevated troponin I level: (4) NSTEMI (non-ST elevated myocardial infarction): (5) Ischemic cardiomyopathy: Plan The patient is ready for discharge today. I will arrange follow-up with our clinic. Admission and Anticipated Discharge Date Admission Date: January 19, 2022 Subjective The patient had an uneventful night and is ready to be discharged. Review of Systems Review of Systems: Review of Systems: See HPI for pertinent positives. All other 10 point review of systems are negative. Physical Exam Physical Exam: General: no acute distress and stated age Head: normocephalic, no masses, lesions, tenderness or abnormalities Eyes: conjunctiva are pink and non-injected, sclera clear Neck: supple, no adenopathy, no bruits, normal jugular venous pulse, no hepatojugular reflux Chest: normal shape and normal respiratory effort Lungs: clear to auscultation and percussion Cardiac Exam: - regular rate & rhythm, no murmurs gallops or rubs - normal S1, normal S2 Pulses: 2(+) throughout Abdomen: abdomen soft, non-tender, no abnormal masses and no hepatosplenomegaly Musculoskeletal: no gait disturbance, no joint inflammation, no deforming arthritis Extremities: no edema and no cyanosis Neuro: grossly normal exam Results & Data ([facility]) Vital Signs (Past 12 Hours) Vital Signs Temp Pulse Pulse Resp BP Pulse Ox O2 Del Method 01/21/22 11:01 36.8 C 102 H 18 117/77 95 01/21/22 07:25 36.8 C 102 H 117/77 95 Room Air 01/21/22 03:00 36.8 C 92 H 18 112/74 98 Room Air 01/21/22 00:00 94 H Laboratory Results Laboratory Results - last 24 hr 01/20/22 01/20/22 01/20/22 09:56 10:22 11:26 Activ Coag Time Kaolin 150 H 237 H POC Glucose 153 H 01/20/22 01/20/22 01/21/22 16:10 20:30 07:16 Activ Coag Time Kaolin POC Glucose 152 H 212 H 148 H Medications Administered Current Inpatient Medications Acetaminophen (Acetaminophen 325 Mg Tab) 650 mg PO Q4H PRN PRN Reason: Pain or Fever Stop: 02/18/22 02:45 Allopurinol (Allopurinol 300 Mg Tab) 150 mg PO [facility] Stop: 02/18/22 20:59 Last Admin: 01/20/22 21:12 Dose: 150 mg Aspirin (Aspirin 81 Mg Ectab) 81 mg PO [facility] Stop: 02/18/22 08:59 Last Admin: 01/21/22 09:05 Dose: 81 mg Atorvastatin Calcium (Atorvastatin 40 Mg Tab) 80 mg PO [facility] Stop: 02/18/22 10:14 Last Admin: 01/21/22 09:06 Dose: 80 mg Clopidogrel Bisulfate (Clopidogrel Bisulfate 75 Mg Tab) 75 mg PO [facility] Stop: 02/20/22 08:59 Last Admin: 01/21/22 09:06 Dose: 75 mg Dextrose (Dextrose 50% 50 Ml Syringe) 25 - 50 ml IV UD PRN; Protocol PRN Reason: Hypoglycemia Protocol Stop: 02/18/22 02:45 Folic Acid (Folic Acid 1 Mg Tab) 5 mg PO BID [facility] Stop: 02/18/22 20:59 Last Admin: 01/21/22 09:06 Dose: 5 mg Gabapentin (Gabapentin 300 Mg Cap) 300 mg PO [facility] Stop: 02/18/22 20:59 Last Admin: 01/20/22 21:13 Dose: Not Given Glucagon (Glucagon For Inj 1 Mg Vial) 1 mg SQ UD PRN; Protocol PRN Reason: Hypoglycemia Protocol Stop: 02/18/22 02:45 Glucose (Glucose 40% Gel 15 Gm Tube) 15 - 30 gm PO UD PRN; Protocol PRN Reason: Hypoglycemia Protocol Stop: 02/18/22 02:45 Glucose (Glucose 10 Tab/Tube) 4 - 8 tab PO UD PRN; Protocol PRN Reason: Hypoglycemia Treatment Stop: 02/18/22 02:45 Hydromorphone HCl (Hydromorphone Inj 0.5 Mg/0.5 Ml Syr) 0.5 mg IV Q3H PRN PRN Reason: Pain Stop: 02/02/22 02:45 Promethazine HCl 12.5 mg/ (Sodium Chloride) 50.5 mls @ 202 mls/hr IV Q6H PRN PRN Reason: Nausea And Vomiting Stop: 02/18/22 02:45 Insulin Aspart (Insulin Aspart Per Unit) 0 units SC [facility] Stop: 02/18/22 16:29 Last Admin: 01/21/22 09:05 Dose: 3 units Lorazepam (Lorazepam 0.5 Mg Tab) 0.5 mg PO TID PRN PRN Reason: Anxiety Stop: 02/18/22 02:45 Losartan Potassium (Losartan Potassium 25 Mg Tab) 25 mg PO QAM [facility] Stop: 02/19/22 12:59 Last Admin: 01/21/22 09:06 Dose: 25 mg Metoprolol Succinate (Metoprolol Succ 50mg Ext Rel Tab) 50 mg PO QAM [facility] Stop: 02/20/22 08:59 Last Admin: 01/21/22 09:07 Dose: 50 mg Metoprolol Tartrate (Metoprolol Tartrate 25 Mg Tab) 25 mg PO BID17 [facility] Stop: 02/19/22 16:59 Last Admin: 01/21/22 09:08 Dose: 25 mg Miscellaneous (Carbohydrates For Hypoglycemia ) 15 - 30 gm PO UD PRN PRN Reason: Hypoglycemia Protocol Stop: 02/18/22 02:45 Nitroglycerin (Nitroglycerin Sl 0.4 Mg/Tab Tab) 0.4 mg SL UD PRN PRN Reason: Chest Pain Stop: 02/18/22 02:45 Sertraline HCl (Sertraline Hcl 50 Mg Tablet) 25 mg PO HS [facility] Stop: 02/18/22 20:59 Last Admin: 01/20/22 21:11 Dose: 25 mg Tramadol HCl (Tramadol Hcl 50 Mg Tablet) 25 - 50 mg PO Q4H PRN PRN Reason: Pain Stop: 02/18/22 02:45 (1) Chest pain Chest pain type: unspecified Qualified Code(s): R07.9 - Chest pain, unspecified
--- NOTE | 2022-01-28 14:59 | Discharge Summary ---
Date of Service January 21, 2022 Admission HPI Per Admitting Provider History obtained from patient, family, and records. Medical history significant for HTN, "tachycardia" on beta-vasiliy Rx, hyperlipidemia, DM2 on oral medications, sarcoidosis/seronegative rheumatoid arthritis on chronic steroid/allopurinol Rx as per patient, mood disorder. Patient is a resident of [facility] who has been vacationing last couple months in [place] at her sister's home. Patient experience achy left-sided chest pain going to her arm with shortness of breath and diaphoresis today after shopping at a local supermarket. No cough, no fever, no chills. Usual personal stressors. Chest pain relieved by nitroglycerin patient had in her purse. 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 Patient denies abdominal pain, black, bloody stools. One-time episode of gross hematuria a few months ago. Patient went to nearby urgent care center but was directed to the ER for evaluation. Aspirin administered upon arrival at the ER. Medical History as above Surgical History : Left knee surgery Home Medications (patient uncertain about doses) : Indapamide, Folic acid, Sertraline, Fenofibrate, Prednisolone, Nebivolol, Allopurinol Family History : Heart disease Personal/Social history : Non-smoker, no EtOH intake, prior work as a schoolteacher, born in [facility] but currently residing in [facility] Admission Exam Per Admitting Provider Physical Exam: GENERAL: Comfortable, pleasant, slightly anxious, no respiratory distress SKIN: Pallor,, warm HEENT: Pale palpebral conjunctivae, no ptosis, dry buccal mucosa NECK : Supple, no tenderness CHEST : CTA, no tenderness HEART : RRR, no obvious murmurs ABDOMEN: Some distention, nontender EXTREMITIES : No LE swelling/tenderness, no other conspicuous deformities noted NEUROLOGIC : Coherent, no facial asymmetry, no other gross focality Principal Diagnosis NSTEMI, status post cardiac cath with successful drug-eluting stent in proximal to mid LAD, iron deficiency anemia, B12 deficiency Discharge Exam Lying in bed comfortably Constitutional well developed, well nourished and + obese; not ill appearing Eyes PERRL, conjunctivae normal, anicteric sclerae ENMT external ear and nose normal, oropharynx normal Neck trachea midline, no thyromegaly Respiratory no respiratory distress Cardiovascular Rate/Rhythm: regular rate and regular rhythm; not tachycardic Heart Sounds: normal S1 and normal S2; no murmur Extremities: no edema Gastrointestinal (Abdomen) Inspection/Auscultation: normal bowel sounds; abdomen not distended Percussion/Palpation: abdomen soft; abdomen nontender Lymphatic no cervical or axillary lymphadenopathy Discharge Data Allergies Allergy/AdvReac Type Severity Reaction Status Date / Time unrecalled antibiotic (not Allergy Mild rash/fixed Uncoded 01/19/22 01:11 pcn, not cipro) drug eruption Consultations 01/18/22 21:19 ED Decision to Admit Stat 01/19/22 02:46 Consult Cardiology Routine 01/20/22 11:09 Consult Cardiac Rehabilitation Routine 01/21/22 09:48 HIM [Consult Health Information Management] Stat Procedures Performed Operation Date: 01/20/22 09:30 Actual Procedures p Cath, Left with Cors and Vent - Ye Bernard, DO s Cineradiography w/Routine Exam - Ye Bernard DO s IVUS Coronary Single Vessel - Gorge Hernandez MD s Drug Eluting Stent SGl Vessel - Gorge Hernandez MD Ordered Studies 01/20/22 07:22 CL Cath Imgs for PACS use only Routine 01/20/22 11:30 CL IVUS Coronary Single Vessel Routine Hospital Course (1) NSTEMI (non-ST elevated myocardial infarction): NSTEMI -EKG showed T wave inversions in anterior leads -CXR:No acute chest disease. -ECHO: Normal LV chamber size and wall thickness. Left ventricular systolic function is normal. EF 55 to 60%. Moderate hypokinesis of the anterior and anteroseptal wall segments consistent with LAD distribution. Grade 1 diastolic dysfunction. Aortic valve sclerosis mild, without significant aortic valvular stenosis. -Troponin levels trending up -Lipid Panel: Triglyceride 292, total cholesterol 208, LDL 113, VLDL 58, HDL 37. --Continue IV Heparin -Continue aspirin, Lipitor, metoprolol Appreciate cardiology input N.p.o. after midnight for cardiac catheterization tomorrow NTG PRN Status post cardiac cath severe CAD and successful placement of drug-eluting stent 3.0 x 28 mm Xience post dilated with 3.5 NC in proximal to mid LAD Remained stable following the procedure Be discharged home tomorrow-we will need to continue aspirin Plavix for 1 year and ASCVD risk factor modification No significant symptoms and she is ambulating without any difficulties No significant arrhythmias Should be discharged home this morning Hyperlipidemia Was on fenofibrate for now Continue Lipitor DM II Hold Metformin Utilize Insulin while hospitalized Monitor BGs H/O sarcoidosis seronegative RA On chronic steroid Resume home meds as able BILLIE Resolved with IV fluids Monitor renal function Avoid Nephrotoxic agents as able Iron deficiency anemia Vitamin B12 deficiency Hemoglobin stable H/O intolerance to oral iron Plan to start on supplements as able Mood disorder Continue home meds DVT Px: IV heparin Code Status Full code Total Time Total Time Spent Total Time Spent (In Minutes): 35 minutes Discharge Plan Discharge Items Patient Disposition: Home - Self-Care Reason For Visit: NSTEMI Discharge Diagnosis: NSTEMI, status post cardiac cath with successful drug-eluting stent in proximal to mid LAD, iron deficiency anemia, B12 deficiency Condition on Discharge: Fair Activity: Resume your previous activity Non-emergency contact: Primary Care Provider Call non-emergency contact if: you have any medication questions and your symp toms worsen Follow-up/Referrals: Arina Moore CRNP [Outside Practitioners] - (Date & Time 01/26/2022 10:20 AM Provider HUBERT Adkins Department Family Practice [facility] [address], [place] [address] ) Diet: Carb Consistent or DM2 and Low Sodium (2gm) Addtl Attending Provider Instructions: Please take it easy for the next few weeks Take your medications as advised Your Nabivolol has been replaced with metoprolol succinate and your indapamide has been discontinued Please keep appointments with your healthcare providers Please have your basic metabolic panel checked during the visit with your primary care provider Pending Studies at Discharge: No Stand-Alone Forms: [employer], Smoking Cessation Medications and DC Order Prescriptions: New atorvastatin 40 mg Tablet 80 mg PO QAM 30 Days Qty: 60 0RF metoprolol succinate 50 mg Tablet Extended Release 24 Hr 50 mg PO QAM 30 Days Qty: 30 0RF clopidogrel 75 mg Tablet 75 mg PO QAM 30 Days Qty: 30 0RF aspirin 81 mg Tablet,Delayed Release (Dr/Ec) 81 mg PO QAM 30 Days Qty: 30 0RF losartan 25 mg Tablet 25 mg PO QAM 30 Days Qty: 30 0RF B12 Active 1,000 mcg tablet,chewable 1,000 mcg PO DAILY Qty: 30 0RF Continued metformin 1,000 mg Tablet 1,000 mg PO BID folic acid 5 mg Capsule 5 mg PO BID fenofibrate micronized 200 mg Capsule 200 mg PO HS nitroglycerin 0.4 mg Tablet, Sublingual 0.4 mg sublingual UD sertraline 25 mg Tablet 25 mg PO HS allopurinol 300 mg Tablet 150 mg PO HS prednisolone 5 mg Tablet 10 mg PO Q2D gabapentin 300 mg Tablet 300 mg PO HS Discontinued indapamide 1.25 mg Tablet 3 mg PO QAM nebivolol 5 mg Tablet 5 mg PO HS nebivolol 2.5 mg Tablet 2.5 mg PO DAILY Discharge Orders: Discharge Order (Routine); Ordered 01/21/22 Ordered By: Siria Cha/Other Patient Handouts: Managing Type 2 Diabetes Admission Data Admit Date/Time: 01/19/22 00:03 Attending Provider: Siria Alberts Admit Provider: Travis Denny Primary Care Provider: PCP,NO Other Providers: Travis Denny ; Kevan Schulz ; Pedro Levine ; Carlos Jacobs ; Johnathan Robbins ; Ye Bernard ; Massimo Allen ; Ember Rojas ; Whitley Chilel ; Maru Stevens ; Marques Acosta ; Clinton Yuen. Other Interventions: Discharge Summary Assessment (RN) Last Done: 01/21/22 11:01
== END 2022-01-21 12:00 | disposition home or self-care (01) | DRG 247 ==
LOC: ED 18:39 → 2S 01-19 00:03 → SUATTDRO 01-19 00:03 → 2S 01-19 02:27